=== PATIENT | male | born 1955 | race Caucasian/White ===

== ENCOUNTER 2017-05-05 20:22 | Emergency (ER) | payer OTHER ==
[~2017-05-05] VITALS: Ht 180.3 cm; Wt 94.0 kg
[~2017-05-05 20:22] MED LIST: ASPEC325 PO; EZET10TA63 PO; INSUINJ8 SQ; LISI-461 PO; LPT/40 PO; METO25TA56 PO; MULT-506 PO; NTRGSL/4 UT; NVLGI SQ; TRIA37.5 PO
[2017-05-05 20:25] VITALS: BP 136/65; PULSE 92; TEMP 36.7; O2SAT 97; Ht 180.3 cm; Wt 94.0 kg
[2017-05-05] MEDS ORDERED: ATOR-26 PO (20:51)
[2017-05-05] MEDS ORDERED: NVLGI/PEN SC (20:51)
[2017-05-05] MEDS ORDERED: ASPI325T39 PO (20:51)
[2017-05-05] MEDS ORDERED: NVLNI SC ×2 (20:51)
[2017-05-05] MEDS ORDERED: CEPH500C2 PO (21:41)
[2017-05-05] MEDS ORDERED: CEPHALEXIN 500MG HOME PACK 1 EA BTL PO ONE (21:45)
--- NOTE | 2017-05-07 00:06 | EMERGENCY ROOM VISIT NOTE ---
ED Visit Note First contact with patient: 20:31 Chief Complaint: I cut my left big toe trimming my toenails. History of Present Illness: Mr. Carmona is a 61-year-old white male who ambulates into the ED accompanied by his complaining of a left toe laceration. Patient reports approximately one hour ago he was trimming his toenails with a nail arik and accidentally cut the tip of his toe. He did clean the wound and attempted to stop bleeding with the application of astyptic pen. He does report he is a diabetic and was concerned about possible infection so he came to the emergency department for further evaluation and care. Currently he reports he is not experiencing any pain and he has not noted any return of bleeding from his laceration. He does report he normally has numbness and tingling of his great toe which is still present but not worse. He has not taken any medications for pain prior to arrival at the hospital. Additionally he denies any signs of infection including fevers, chills, sweats, joint pain, decreased appetite, nausea/vomiting. Review of Systems: As noted above in history of present illness. Past Medical History: Diabetes, ischemic heart disease, bladder cancer, hypertension. Current Medications: Medications Dose Route/Sig Max Daily Dose Days Date Category Novolin N (Insulin Human NPH) 100 Units/Ml Susp 18 Units SC QPM 05/05/17 Reported Novolin N (Insulin Human NPH) 100 Units/Ml Susp 42 Units SC QAM 05/05/17 Reported Novolog Flexpen (Insulin Aspart) 100 Units/Ml Inj 14 Units SC BID 05/05/17 Reported Lipitor (Atorvastatin Calcium) 80 Mg Tab 80 Mg PO DAILY 05/05/17 Reported Aspirin Ec (Aspirin) 325 Mg Tab 325 Mg PO DAILY 05/05/17 Reported Lopressor (Metoprolol Tartrate) 25 Mg Tab 25 Mg PO BID 09/19/09 Reported Zestril (Lisinopril) 10 Mg Tab 10 Mg PO BID 09/19/09 Reported Dyazide 37.5MG/25MG (Triamterene/HCTZ) Cap 1 Tab PO DAILY 09/19/09 Reported Nitrostat (Nitroglycerin) 0.4 Mg Tab 0.4 Mg UT PRN 09/19/09 Reported Multivitamin (Multivitamins) Tab 1 Tab PO DAILY 09/19/09 Reported Zetia (Ezetimibe) 10 Mg Tab 10 Mg PO HS 04/11/07 Reported Allergies to Medications: Patient denies. Social History: Patient is currently employed; he feels safe in his home environment; he denies tobacco use.. Tetanus Immunization Status: Patient reports up-to-date. Physical Examination: Vital Signs: Date Time Temp Pulse Resp B/P (MAP) Pulse Ox O2 Delivery O2 Flow Rate FiO2 05/05/17 20:25 36.7 92 18 136/65 97 Room Air GENERAL: 61-year-old male in no acute distress, nontoxic-appearing, afebrile and hemodynamically stable. NEUROLOGICAL: Awake, alert and oriented to person, place and time. Answering questions appropriately and following commands. Normal gait. Good hand eye coordination. No focal motor sensory deficits. SKIN: Warm, dry and pink. Left Great Toe: Patient has a 1-1.5 centimeter superficial laceration over the tip of the left great toe. There is some mild oozing but no significant bleeding. Additionally noted was a large amount of black material around and in the laceration. He reported this was the styptic material. LEFT FOOT: Soft tissue injury as noted above. No gross bony deformity. Mild tenderness over his laceration but no tenderness over the joints or the bony structures. The skin was warm and pink and capillary refill is brisk. Because of his neuropathy had difficulty distinguishing light touch. ED Course: Patient is assessed as noted above. Wound Cleaning Patient's great toe was prepped with Betadine and placed in a sterile field. I did remove all of the black material from his wound and most of the other black material on the foot. Copious irrigation was performed using sterile saline. With direct pressure the bleeding subsided. Bacitracin was placed on his wound and the toe was then bandaged with sterile saline. No complications and the patient tolerated the procedure well. Patient was educated about tonight's findings and instructed on his treatment plan; he verbalizes understanding and agreement with this plan. Clinical Impression: Laceration of the left great toe Disposition: Patient discharged home in stable condition; prior to departure he was reassessed and subjectively reported he was still pain free. Plan: Comfort measures, wound care and signs of infection were discussed with the patient. A magaly was prescribed Keflex 500 mg 4 times a day for 7 days. Patient was encouraged to follow-up with PCP or return to the ED for any signs of infection or any new/concerning symptoms.
== END 2017-05-05 21:50 | disposition home or self-care (01) ==
LOC: C.EDB 20:23 → C.EDD 21:50
DX: S91.112A Laceration without foreign body of left great toe without damage to nail, initial encounter (principal); I10 Essential (primary) hypertension; E11.9 Type 2 diabetes mellitus without complications; Z79.4 Long term (current) use of insulin; Z79.82 Long term (current) use of aspirin; Z85.51 Personal history of malignant neoplasm of bladder; Z79.899 Other long term (current) drug therapy; W26.8XXA Contact with other sharp object(s), not elsewhere classified, initial encounter

== ENCOUNTER → 2017-09-12 | Outpatient (CLI) | payer OTHER ==
[~2017-09-12] MED LIST changes: -ASPEC325 PO; +ASPI325T39 PO; +ATOR-26 PO; -INSUINJ8 SQ; -LPT/40 PO; -NVLGI SQ; +NVLGI/PEN SC; +NVLNI SC
== END | disposition home or self-care (01) ==
LOC: C.PATHSPEC 16:46
PROVIDERS: ATTEND Urology
DX: N40.0 Benign prostatic hyperplasia without lower urinary tract symptoms (principal)

== ENCOUNTER 2021-08-23 11:05 | Inpatient (IN) ==
[2021-08-23] MEDS ORDERED: ACETAMINOPHEN 1,000 MG/100 ML VIAL IV STA (11:57)
[2021-08-23] MEDS ORDERED: PIPERACILL/TAZOBAC CONSULT ACTIVE PRN ×2 (11:57→17:33)
[2021-08-23] MEDS ORDERED: PIPERACILLIN/TAZOBACTAM 4.5 GM/120 ML BAG IV ONE (11:57)
[2021-08-23] MEDS ORDERED: SODIUM CHLORIDE 0.9% 1000ML 1,000 ML IV ONE (11:57)
[2021-08-23] MEDS ORDERED: DAPTOmycin 500 MG in SYRINGE 0 ML IV ONE (11:57)
--- NOTE | 2021-08-23 12:05 | Emergency Department Note ---
Impression & Plan Cellulitis of left foot, Diabetic foot ulcers, Diabetic polyneuropathy ED Provider Note NAME: JEN AGUILLON AGE: 66 SEX: M ARRIVES VIA: Walk-In INFORMANT: Oni ED PROVIDER(S): Shlomo Siegel MD CHIEF COMPLAINT: Cellulitis, foot ulcers. 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 He reports he has been following with podiatry for a right diabetic toe ulcer that persists but has not been infected per his report. He reports feeling feverish today. He denies nausea, vomiting, diarrhea or urinary symptoms. On arrival the patient is fatigued appearing but no acute distress, afebrile heart in the 100s, BP 190s/70s and vital signs otherwise stable. He has erythema and edema of the left mid and forefoot with distal plantar surface ulcerations of the first and second toes with purulence draining from the second toe (culture obtained) and fluctuance over the second toe. Aspiration attempted of first toe but no purulence was drained. EKG without overt acute ischemia. CXR with nonspecific interstitial thickening. WBC 12.8K. H/H 12.4/35.5 without prior values for comparison. Platelets wnl. ESR elevated at 80 and CRP 12.3. Chemistry without acidosis. Lactate 1.2, wnl. Electrolytes unremarkable. LFTs with mild elevations without prior for comparison, nonspecific. Procalcitonin is not significantly elevated. UA without convincing evidence of infection. Covid-19 PCR ws negative. Plain films of left foot without XR evidence of osseous involvement. Patient agrees with plan for further management of his foot cellulitis/ulcers. Zosyn and Daptomycin ordered empiricially on arrival. Case was discussed with Justyn Choi PAC, with Dr. Jamin Alejandra hospitalist who will evaluate the patient for admission. Triage Nursing notes reviewed and agree them. prior medical records reviewed Vital Signs: reviewed and remarkable for hypertension. Differential diagnosis: Cellulitis, abscess, MRSA infection, DVT, necrotizing fasciitis, dermatitis, drug eruption, allergic reaction, as well as other pathologies. ER treatment provided: See below. Diagnostics interpreted by me: ECG: Sinus rhythm, 93 bpm, no ectopy, likely LVH, no overt ST elevation or depression. Cardiac Monitoring: An order for continuous cardiac monitoring was placed and demonstrated Sinus rhythm, 93 bpm, no ectopy. Laboratory studies: see below Imaging studies: See below Consultation(s): Justyn Choi PAC, with Dr. 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 He reports he has been following with podiatry for a right diabetic toe ulcer that persists but has not been infected per his report. He reports feeling feverish today. He denies nausea, vomiting, diarrhea or urinary symptoms. ROS: See above HPI for pertinent positives & negatives. A total of 10 systems reviewed and were otherwise negative. PAST MEDICAL HISTORY: see Below PAST SURGICAL HISTORY: see Below FAMILY HISTORY:See Below SOCIAL HISTORY: see Below HOME MEDICATIONS: see Below ALLERGIES: see Below VITALS: see Below PHYSICAL EXAMINATION: GENERAL: Awake, alert, well-appearing, in no distress HENT: Normocephalic, atraumatic. Oropharynx unremarkable. EYES: Normal conjunctiva. Sclera non-icteric. NECK: Supple. No nuchal rigidity. FROM. No JVD. RESPIRATORY: Clear to auscultation. CARDIAC: Regular rate, normal rhythm. Extremities warm and well perfused. Pulses equal. ABDOMEN: Soft, non-distended. No tenderness to palpation. No rebound or guarding. No masses. RECTAL: Deferred. MUSCULOSKELETAL: Chest examination reveals no tenderness. The back is symmetrical on inspection without obvious abnormality. There is no CVA tenderness to palpation. No joint edema. LOWER EXTREMITIES: Calves are equal size bilaterally and non-tender. Erythema and edema of the left mid and forefoot with distal plantar surface ulcerations of the first and second toes with purulence draining from the second toe and large amount of fluctuance over the first toe. NEURO: Normal sensorium. No sensory or motor deficits noted. SKIN: No rash or jaundice noted. Shlomo Siegel MD Past Med/Surg History Medical History Arrhythmia "SKIPS A BEAT" CAD (coronary artery disease) Cancer BLADDER CANCER CKD (chronic kidney disease) stage 3, GFR 30-59 ml/min Diabetes mellitus type 1 Diabetic polyneuropathy Hyperlipidemia Hypertension Surgical History H/O transurethral destruction of bladder lesion History of cardiac cath 2000 History of cataract extraction with lens replacement RIGHT EYE, 12/24/18, [facility] [place] History of colonoscopy History of coronary artery bypass graft 6 VESSELS (2000; [facility]) FOLLOWS WITH DR. CUADRA. History of cystoscopy Family History Father , 31 Myocardial infarction Social History Smoking Status: Former smoker Cigarettes Per Day: QUIT IN 1976; Smoking End Date: 1976; Second Hand Exposure: No; Hx Alcohol Use: Yes Alcohol type: beer Hx Substance Use: No Preferred Language: Iraqi Communication Ability: Effective Terminal Clerk Required: No Beliefs That Will Affect Care: None Current Living Situation: Spouse Other Information That Helps Us Care for You: No Feels Safe at Home: Yes Safety Concerns: Feels Safe At This Time Assistive Devices: Glasses Allergies Allergies Allergy/AdvReac Type Severity Reaction Status Date / Time No Known Allergies Allergy Verified 08/23/21 12:32 Home Meds Home Medications Medication Instructions Recorded Confirmed aspirin 325 mg tablet 325 mg PO QAM 12/15/18 08/23/21 atorvastatin 80 mg tablet 80 mg PO HS 12/15/18 08/23/21 ezetimibe 10 mg tablet (Zetia) 10 mg PO HS 12/15/18 08/23/21 insulin NPH isoph U-100 human 100 18 unit SUBCUT QPM 12/15/18 08/23/21 unit/mL subcutaneous suspension (Novolin N NPH U-100 Insulin isophane) insulin NPH isoph U-100 human 100 42 unit SUBCUT QAM 12/15/18 08/23/21 unit/mL subcutaneous suspension (Novolin N NPH U-100 Insulin isophane) insulin aspart U-100 100 unit/mL 0 unit SUBCUT BID 12/15/18 08/23/21 subcutaneous cartridge (Novolog PenFill U-100 Insulin aspart) metoprolol tartrate 25 mg tablet 25 mg PO BID 12/15/18 08/23/21 multivitamin 1 tab PO DAILY 12/15/18 08/23/21 furosemide 40 mg tablet (Lasix) See Rx Instructions .ROUTE .COMPLEX 08/23/21 08/23/21 isosorbide mononitrate 30 mg 30 mg PO DAILY 08/23/21 08/23/21 tablet,extended release 24 hr lisinopril 40 mg tablet 40 mg PO DAILY 08/23/21 08/23/21 terazosin 2 mg capsule 2 mg PO HS 08/23/21 08/23/21 Results & Data (ED) Vital Signs Vital Signs - 24 hr 08/23/21 11:16 08/23/21 12:08 08/23/21 13:00 Temperature 36.7 C Temperature Source Temporal Artery Scan Pulse Rate 104 H Pulse Rate from SpO2 Sensor Pulse Rhythm Regular Pulse Strength Normal Respiratory Rate 20 Respiratory Effort / Characteristics Non-Labored Spontaneous Non-Labored Spontaneous Non-Labored Spontaneous Respiratory Depth Normal Respiratory Pattern Regular Blood Pressure 146/73 H Blood Pressure Mean 97 Blood Pressure Position Sitting Pulse Oximetry 100 Oxygen Delivery Method Room Air Sepsis Recent Fever Within 48 Hours No Sepsis New/Unexplained Change in Mental Status No Sepsis Action Taken by Nursing No Action Required 08/23/21 13:07 08/23/21 13:30 08/23/21 13:53 Temperature 37.2 C Temperature Source Oral Pulse Rate 85 82 Pulse Rate from SpO2 Sensor 85 81 Pulse Rhythm Pulse Strength Respiratory Rate 19 20 Respiratory Effort / Characteristics Respiratory Depth Respiratory Pattern Blood Pressure 154/70 H Blood Pressure Mean 98 Blood Pressure Position Pulse Oximetry 94 98 Oxygen Delivery Method Sepsis Recent Fever Within 48 Hours Sepsis New/Unexplained Change in Mental Status Sepsis Action Taken by Nursing Laboratory Data Attestation: I reviewed the patient's lab results. Result diagrams: 08/23/21 11:40 08/23/21 11:40 Lab Results 08/23/21 08/23/21 08/23/21 Range/Units 11:40 11:40 11:40 WBC 12.81 H (4.8-10.8) K/uL RBC 3.68 L (4.7-6.1) M/uL Hgb 12.4 L (14.0-18.0) g/dL Hct 35.5 L (42-52) % MCV 96.5 (80-100) fL MCH 33.7 (25-34) pg MCHC 34.9 (32-36) g/dL RDW Std Deviation 44.6 (36.4-46.3) fL RDW Coeff of Liseth 12.7 (11.5-14.5) % Plt Count 248 (130-400) K/uL MPV 11.0 H (7.4-10.4) fL Immature Gran % (Auto) 0.2 % Neut % (Auto) 82.4 % Lymph % (Auto) 5.5 % Pike % (Auto) 11.2 % Eos % (Auto) 0.6 % Baso % (Auto) 0.1 % Neut # (Auto) 10.57 H (1.4-6.5) K/uL Lymph # (Auto) 0.70 L (1.2-3.4) K/uL Pike # (Auto) 1.43 H (0.11-0.59) K/uL Eos # (Auto) 0.08 (0-0.5) K/uL Baso # (Auto) 0.01 (0-0.2) K/uL Immature Gran # (Auto) 0.02 (0.00-0.02) K/uL ESR (0-20) mm/hr PT 10.7 (9.0-12.0) Seconds INR 1.1 (0.9-1.1) APTT 28.5 (21.0-31.0) Seconds PTT Ratio 1.1 Sodium 133 L (136-145) mmol/L Potassium 3.9 (3.5-5.1) mmol/L Chloride 101 (98-107) mmol/L Carbon Dioxide 27 (21-32) mmol/L Anion Gap 5.0 (3-11) BUN 32 H (7-18) mg/dl Creatinine 1.27 (0.6-1.4) mg/dl Est Cr Clr Drug Dosing 66.9 ml/min Est GFR ( Amer) 67.3 ml/min Est GFR (Non-Af Amer) 58.1 ml/min BUN/Creatinine Ratio 25.1 H (10-20) Glucose 138 H (70-99) mg/dl POC Glucose (70-99) mg/dl Lactate (0.4-2.0) mmol/L Calcium 9.7 (8.5-10.1) mg/dl Magnesium 2.4 (1.8-2.4) mg/dl Total Bilirubin 1.3 H (0.2-1) mg/dl AST 67 H (15-37) U/L ALT 119 H (12-78) U/L Alkaline Phosphatase 196 H (45-117) U/L Total Creatine Kinase (39-308) U/L C-Reactive Protein (0-0.29) mg/dl NT-Pro-B Natriuret Pep (0-900) pg/ml Total Protein 8.5 H (6.4-8.2) gm/dl Albumin 3.0 L (3.4-5.0) gm/dl Globulin 5.5 H (2.5-4.0) gm/dl Albumin/Globulin Ratio 0.5 L (0.9-2) Procalcitonin (0-0.5) ng/ml SARS-CoV-2 (PCR) (Negative) 08/23/21 08/23/21 08/23/21 Range/Units 11:40 11:40 11:40 WBC (4.8-10.8) K/uL RBC (4.7-6.1) M/uL Hgb (14.0-18.0) g/dL Hct (42-52) % MCV (80-100) fL MCH (25-34) pg MCHC (32-36) g/dL RDW Std Deviation (36.4-46.3) fL RDW Coeff of Liseth (11.5-14.5) % Plt Count (130-400) K/uL MPV (7.4-10.4) fL Immature Gran % (Auto) % Neut % (Auto) % Lymph % (Auto) % Pike % (Auto) % Eos % (Auto) % Baso % (Auto) % Neut # (Auto) (1.4-6.5) K/uL Lymph # (Auto) (1.2-3.4) K/uL Pike # (Auto) (0.11-0.59) K/uL Eos # (Auto) (0-0.5) K/uL Baso # (Auto) (0-0.2) K/uL Immature Gran # (Auto) (0.00-0.02) K/uL ESR 80 H (0-20) mm/hr PT (9.0-12.0) Seconds INR (0.9-1.1) APTT (21.0-31.0) Seconds PTT Ratio Sodium (136-145) mmol/L Potassium (3.5-5.1) mmol/L Chloride (98-107) mmol/L Carbon Dioxide (21-32) mmol/L Anion Gap (3-11) BUN (7-18) mg/dl Creatinine (0.6-1.4) mg/dl Est Cr Clr Drug Dosing ml/min Est GFR ( Amer) ml/min Est GFR (Non-Af Amer) ml/min BUN/Creatinine Ratio (10-20) Glucose (70-99) mg/dl POC Glucose (70-99) mg/dl Lactate (0.4-2.0) mmol/L Calcium (8.5-10.1) mg/dl Magnesium (1.8-2.4) mg/dl Total Bilirubin (0.2-1) mg/dl AST (15-37) U/L ALT (12-78) U/L Alkaline Phosphatase (45-117) U/L Total Creatine Kinase 59 (39-308) U/L C-Reactive Protein 12.30 H (0-0.29) mg/dl NT-Pro-B Natriuret Pep (0-900) pg/ml Total Protein (6.4-8.2) gm/dl Albumin (3.4-5.0) gm/dl Globulin (2.5-4.0) gm/dl Albumin/Globulin Ratio (0.9-2) Procalcitonin 0.30 (0-0.5) ng/ml SARS-CoV-2 (PCR) (Negative) 08/23/21 08/23/21 08/23/21 Range/Units 11:40 12:27 12:30 WBC (4.8-10.8) K/uL RBC (4.7-6.1) M/uL Hgb (14.0-18.0) g/dL Hct (42-52) % MCV (80-100) fL MCH (25-34) pg MCHC (32-36) g/dL RDW Std Deviation (36.4-46.3) fL RDW Coeff of Liseth (11.5-14.5) % Plt Count (130-400) K/uL MPV (7.4-10.4) fL Immature Gran % (Auto) % Neut % (Auto) % Lymph % (Auto) % Pike % (Auto) % Eos % (Auto) % Baso % (Auto) % Neut # (Auto) (1.4-6.5) K/uL Lymph # (Auto) (1.2-3.4) K/uL Pike # (Auto) (0.11-0.59) K/uL Eos # (Auto) (0-0.5) K/uL Baso # (Auto) (0-0.2) K/uL Immature Gran # (Auto) (0.00-0.02) K/uL ESR (0-20) mm/hr PT (9.0-12.0) Seconds INR (0.9-1.1) APTT (21.0-31.0) Seconds PTT Ratio Sodium (136-145) mmol/L Potassium (3.5-5.1) mmol/L Chloride (98-107) mmol/L Carbon Dioxide (21-32) mmol/L Anion Gap (3-11) BUN (7-18) mg/dl Creatinine (0.6-1.4) mg/dl Est Cr Clr Drug Dosing ml/min Est GFR ( Amer) ml/min Est GFR (Non-Af Amer) ml/min BUN/Creatinine Ratio (10-20) Glucose (70-99) mg/dl POC Glucose 107 H (70-99) mg/dl Lactate (0.4-2.0) mmol/L Calcium (8.5-10.1) mg/dl Magnesium (1.8-2.4) mg/dl Total Bilirubin (0.2-1) mg/dl AST (15-37) U/L ALT (12-78) U/L Alkaline Phosphatase (45-117) U/L Total Creatine Kinase (39-308) U/L C-Reactive Protein (0-0.29) mg/dl NT-Pro-B Natriuret Pep 1318 H (0-900) pg/ml Total Protein (6.4-8.2) gm/dl Albumin (3.4-5.0) gm/dl Globulin (2.5-4.0) gm/dl Albumin/Globulin Ratio (0.9-2) Procalcitonin (0-0.5) ng/ml SARS-CoV-2 (PCR) NEGATIVE (Negative) 08/23/21 Range/Units 12:39 WBC (4.8-10.8) K/uL RBC (4.7-6.1) M/uL Hgb (14.0-18.0) g/dL Hct (42-52) % MCV (80-100) fL MCH (25-34) pg MCHC (32-36) g/dL RDW Std Deviation (36.4-46.3) fL RDW Coeff of Liseth (11.5-14.5) % Plt Count (130-400) K/uL MPV (7.4-10.4) fL Immature Gran % (Auto) % Neut % (Auto) % Lymph % (Auto) % Pike % (Auto) % Eos % (Auto) % Baso % (Auto) % Neut # (Auto) (1.4-6.5) K/uL Lymph # (Auto) (1.2-3.4) K/uL Pike # (Auto) (0.11-0.59) K/uL Eos # (Auto) (0-0.5) K/uL Baso # (Auto) (0-0.2) K/uL Immature Gran # (Auto) (0.00-0.02) K/uL ESR (0-20) mm/hr PT (9.0-12.0) Seconds INR (0.9-1.1) APTT (21.0-31.0) Seconds PTT Ratio Sodium (136-145) mmol/L Potassium (3.5-5.1) mmol/L Chloride (98-107) mmol/L Carbon Dioxide (21-32) mmol/L Anion Gap (3-11) BUN (7-18) mg/dl Creatinine (0.6-1.4) mg/dl Est Cr Clr Drug Dosing ml/min Est GFR ( Amer) ml/min Est GFR (Non-Af Amer) ml/min BUN/Creatinine Ratio (10-20) Glucose (70-99) mg/dl POC Glucose (70-99) mg/dl Lactate 1.2 (0.4-2.0) mmol/L Calcium (8.5-10.1) mg/dl Magnesium (1.8-2.4) mg/dl Total Bilirubin (0.2-1) mg/dl AST (15-37) U/L ALT (12-78) U/L Alkaline Phosphatase (45-117) U/L Total Creatine Kinase (39-308) U/L C-Reactive Protein (0-0.29) mg/dl NT-Pro-B Natriuret Pep (0-900) pg/ml Total Protein (6.4-8.2) gm/dl Albumin (3.4-5.0) gm/dl Globulin (2.5-4.0) gm/dl Albumin/Globulin Ratio (0.9-2) Procalcitonin (0-0.5) ng/ml SARS-CoV-2 (PCR) (Negative) Administered Medications Ezetimibe (Ezetimibe 10 Mg Tablet) 10 mg PO HS RUCHI Stop: 09/22/21 20:59 Last Admin: 08/23/21 20:30 Dose: 10 mg Documented by: [id number] Heparin Sodium (Porcine) (Heparin Sod 5,000 Unit/0.5 Ml Vial) 5,000 units SQ Q8 RUCHI Stop: 09/22/21 21:59 Last Admin: 08/23/21 20:30 Dose: 5,000 units Documented by: [id number] Piperacillin Sod/Tazobactam (Sod 3.375 gm/ Dextrose) 115 mls @ 28.75 mls/hr IV Q8H RUCHI Stop: 08/30/21 17:59 Last Admin: 08/24/21 00:49 Dose: 28.8 mls/hr Documented by: [id number] Infusion: 08/24/21 00:47 Dose: 0 mls/hr Documented by: [id number] Infusion: 08/23/21 22:50 Dose: 28.8 mls/hr Documented by: [id number] Infusion: 08/23/21 21:08 Dose: 0 mls/hr Documented by: [id number] Admin: 08/23/21 19:03 Dose: 28.8 mls/hr Documented by: [id number] Insulin Aspart (Insulin Aspart 100 Units/Ml 3 Ml Pen) 0 units SC ACHS RUCHI Stop: 09/22/21 17:32 Last Admin: 08/23/21 21:10 Dose: 1 units Documented by: [id number] Cosigned by: [id number] Admin: 08/23/21 19:05 Dose: Not Given Documented by: [id number] Cosigned by: [id number] Terazosin HCl (Terazosin Hcl 1 Mg Cap) 2 mg PO HS RUCHI Stop: 09/22/21 20:59 Last Admin: 08/23/21 20:30 Dose: 2 mg Documented by: [id number] Discontinued Medications Furosemide (Furosemide 40 Mg/4 Ml Vial) 20 mg IV ONE ONE Stop: 08/23/21 15:01 Last Admin: 08/23/21 15:29 Dose: 20 mg Documented by: [id number] Piperacillin Sod/Tazobactam Sod (Zosyn) 4.5 gm in 120 mls @ 240 mls/hr IV NOW O NE Stop: 08/23/21 12:26 Last Infusion: 08/23/21 13:58 Dose: 0 mls/hr Documented by: [id number] Admin: 08/23/21 13:08 Dose: 240 mls/hr Documented by: [id number] Daptomycin 500 mg/ Syringe 10 mls @ 5 mls/min IV NOW ONE; Protocol Stop: 08/23/21 11:58 Last Admin: 08/23/21 14:49 Dose: 5 mls/min Documented by: [id number] Sodium Chloride (Nss 1000ml) 1,000 mls @ 999 mls/hr IV .Q1H1M ONE Stop: 08/23/21 12:57 Last Infusion: 08/23/21 13:59 Dose: 0 mls/hr Documented by: [id number] Admin: 08/23/21 12:18 Dose: 999 mls/hr Documented by: [id number] Acetaminophen (Ofirmev) 1,000 mg in 100 mls @ 400 mls/hr IV NOW STA Stop: 08/23/21 12:11 Last Infusion: 08/23/21 13:09 Dose: 0 mls/hr Documented by: [id number] Admin: 08/23/21 12:19 Dose: 400 mls/hr Documented by: [id number] Insulin Human NPH (Insulin Human Nph) 20 units SC NOW ONE Stop: 08/23/21 18:31 Last Admin: 08/23/21 19:04 Dose: 20 units Documented by: [id number] Cosigned by: [id number] Metoprolol Tartrate (Metoprolol Tartrate 25 Mg Tab) 25 mg PO NOW STA Stop: 08/23/21 14:57 Last Admin: 08/23/21 15:29 Dose: 25 mg Documented by: [id number] Metoprolol Tartrate (Metoprolol Tartrate 50 Mg Tab) 50 mg PO ONE ONE Stop: 08/24/21 00:16 Last Admin: 08/24/21 00:49 Dose: 50 mg Documented by: [id number] Imaging Data Radiologist's Impression: Chest X-Ray 08/23/21 11:57 XR chest 1V portable CLINICAL HISTORY: SEPSIS COMPARISON STUDY: Chest radiograph September 19, 2009. FINDINGS: Median sternotomy wires are noted as well as mediastinal surgical clips. There is moderate enlargement of the cardiac silhouette, increased since prior examination. No pneumothorax or pleural effusion is noted. Interstitial thickening has developed. There is no lobar consolidation. IMPRESSION: Cardiomegaly. Interstitial thickening which may reflect mild pulmonary edema or an infectious process. Radiographic follow-up is recommended. ACT 112: Negative or not required by law. Electronically signed by: Khang Paige M.D. 08/23/2021 12:23 PM Foot X-Ray 08/23/21 11:57 LEFT FOOT 2 VIEWS CLINICAL HISTORY: Cellulitis. Diabetic foot ulcer. FINDINGS: AP and lateral views of the left foot are obtained. No prior studies are available for comparison at the time of dictation. The skeletal structures are osteopenic. No fracture is identified. Degenerative spurring is seen along the dorsal aspect of the tarsal bones. Mild arthritic change is seen throughout the foot. No bony erosion or periostitis is identified. A soft tissue ulceration with soft tissue gas is suggested along the plantar surface of the first toe. Diffuse soft tissue edema is present throughout the foot. There is advanced atherosclerotic calcification of the regional arteries. IMPRESSION: 1. No acute bony abnormality is identified. Specifically, there is no radiographic evidence of osteomyelitis on the provided images. 2. Diffuse soft tissue edema is typical for cellulitis. 3. Suspect a soft tissue ulceration with soft tissue gas along the plantar surface of the first toe. Electronically signed by: Camacho Merida M.D. 08/23/2021 12:35 PM Discharge Plan Visit Data Chief Complaint: Infection Stated Complaint: L LEG INFECTION/REFERRED BY DR HERNÁNDEZ ED Provider: Shlomo Siegel Discharge Problem: Cellulitis of left foot, Diabetic foot ulcers, Diabetic polyneuropathy Patient Disposition: Admitted As Inpatient Discharge Instructions Interventions: ED Discharge Assessment Last Done: 08/23/21 15:28 Discharge Problem: Diabetic foot ulcers Qualifiers: Diabetic foot ulcer location: toe
[2021-08-23 12:15] LABS: Basophils # (auto) 0.01 K/uL (0-0.2); Basophils % (auto) 0.1 %; Eosinophils # (auto) 0.08 K/uL (0-0.5); Eosinophils % (auto) 0.6 %; Hematocrit (blood only) 35.5 % (42-52); Hemoglobin 12.4 g/dL (14.0-18.0); Immature Granulocytes # (auto) 0.02 K/uL (0.00-0.02); Immature Granulocytes % (auto) 0.2 %; Lymphocytes % (auto) 5.5 %; Mean Corpuscular Hemoglobin 33.7 pg (25-34); Mean Corpuscular Hgb Conc 34.9 g/dL (32-36); Mean Corpuscular Volume 96.5 fL (80-100); Monocytes # (auto) 1.43 K/uL (0.11-0.59); Monocytes % (auto) 11.2 %; Neutrophils # (auto) 10.57 K/uL (1.4-6.5); Neutrophils % (auto) 82.4 %; Platelet Count 248 K/uL (130-400); RDW Coefficient of Variation 12.7 % (11.5-14.5); RDW Standard Deviation 44.6 fL (36.4-46.3); Red Blood Count 3.68 M/uL (4.7-6.1); White Blood Count 12.81 K/uL (4.8-10.8)
[2021-08-23 12:25] LABS: BUN Creatinine Ratio 25.1 (10-20); Calcium 9.7 mg/dl (8.5-10.1); Creatinine Clr Calc Pharmacy 66.9 ml/min; Est GFR (African American) 67.3 ml/min; Est GFR (Non-African American) 58.1 ml/min; Magnesium 2.4 mg/dl (1.8-2.4); Potassium 3.9 mmol/L (3.5-5.1)
--- NOTE | 2021-08-23 12:25 | XRay Report ---
XR chest 1V portable CLINICAL HISTORY: SEPSIS COMPARISON STUDY: Chest radiograph September 19, 2009. FINDINGS: Median sternotomy wires are noted as well as mediastinal surgical clips. There is moderate enlargement of the cardiac silhouette, increased since prior examination. No pneumothorax or pleural effusion is noted. Interstitial thickening has developed. There is no lobar consolidation. IMPRESSION: Cardiomegaly. Interstitial thickening which may reflect mild pulmonary edema or an infec tious process. Radiographic follow-up is recommended. ACT 112: Negative or not required by law. Electronically signed by: Khang Paige M.D. 08/23/2021 12:23 PM
[2021-08-23 12:28] LABS: Albumin Globulin Ratio 0.5 (0.9-2); Bilirubin,Total 1.3 mg/dl (0.2-1); Globulin 5.5 gm/dl (2.5-4.0); Total Protein 8.5 gm/dl (6.4-8.2)
--- NOTE | 2021-08-23 12:37 | XRay Report ---
LEFT FOOT 2 VIEWS CLINICAL HISTORY: Cellulitis. Diabetic foot ulcer. FINDINGS: AP and lateral views of the left foot are obtained. No prior studies are available for roshan conn at the time of dictation. The skeletal structures are osteopenic. No fracture is identified. D egenerative spurring is seen along the dorsal aspect of the tarsal bones. Mild arthritic change is se en throughout the foot. No bony erosion or periostitis is identified. A soft tissue ulceration with s oft tissue gas is suggested along the plantar surface of the first toe. Diffuse soft tissue edema is present throughout the foot. There is advanced atherosclerotic calcification of the regional arteries . IMPRESSION: 1. No acute bony abnormality is identified. Specifically, there is no radiographic evidence of osteom yelitis on the provided images. 2. Diffuse soft tissue edema is typical for cellulitis. 3. Suspect a soft tissue ulceration with soft tissue gas along the plantar surface of the first toe. Electronically signed by: Camacho Merida M.D. 08/23/2021 12:35 PM
[2021-08-23 12:38] LABS: INR 1.1 (0.9-1.1); Partial Thromboplastin Ratio 1.1; Partial Thromboplastin Time 28.5 Seconds (21.0-31.0); Prothrombin Time 10.7 Seconds (9.0-12.0)
--- NOTE | 2021-08-23 14:21 | Electrocardiogram Report ---
Test Reason : Blood Pressure : / mmHG Vent. Rate : 093 BPM Atrial Rate : 093 BPM P-R Int : 218 ms QRS Dur : 100 ms QT Int : 360 ms P-R-T Axes : 049 030 109 degrees QTc Int : 447 ms Sinus rhythm with 1st degree A-V block Poor R wave progression, consider anterior ME vs. lead placement vs. LVH Abnormal ECG When compared with ECG of 19-SEP-2009 11:46, [place] interval has increased Vent. rate has increased BY 34 BPM QT has lengthened Confirmed by Jose Diaz ([id number] on 08/23/2021 2:20:54 PM Referred By: Confirmed By:Aguilar Diaz
[2021-08-23 14:50] LABS: C Reactive Protein 12.3 mg/dl (0-0.29)
[2021-08-23] MEDS ORDERED: METOPROLOL TARTRATE 25 MG TAB PO STA (14:56)
[2021-08-23] MEDS ORDERED: FUROSEMIDE 40 MG/4 ML VIAL IV ONE (15:00)
--- NOTE | 2021-08-23 15:01 | History & Physical Report ---
Date of Service August 23, 2021 Assessment & Plan (1) Cellulitis of left foot: (2) Diabetic foot ulcers: (3) Diabetes mellitus type 1: (4) Diabetic polyneuropathy: (5) CKD (chronic kidney disease) stage 3, GFR 30-59 ml/min: (6) CAD (coronary artery disease): (7) Hypertension: (8) Hyperlipidemia: Plan: This is a 66-year-old male who has significant past medical history of type 1 diabetes mellitus, diabetic neuropathy, diabetic nephropathy with CKD stage III anemia of chronic disease, chronic ischemic heart disease, history of CABG, HTN, HLD, gout, bladder cancer who presents to ED at the referral of podiatry due to concern for left lower extremity cellulitis. Cellulitis of Left Midfoot (POA) Diabetic ulcerations to L great toe, toe 2,3; R great toe ( POA) Infected/necrotic ulcerations of L toes 1-3 ( POA ) admit to [facility] obtain MRI of L foot obtain venous Doppler LLE and arterial Doppler due to diminished pedal pulse in L foot consult orthopedics IV daptomycin and zosyn ordered blood culture pending wound care consult obtain wound culture elevate lower ext when able LLE non weight bearing until seen by ortho neuropathy precautions ESR 80; CRP 12.3 check ck IDDM Type 1 NPH/novolog per protocol consult glycemic pharmacy a1c in a.m., pt believes his last a1c was < 9 CKD 3, diabetic nephropathy monitor renal fxn avoid nephrotoxic agents CAD hx of CABG Diastolic dysfunction grade 2 continue asa, lisinopril, imdur, metoprolol hold statin while on dapto Hold home regimen of lasix (60mg a.m. and 40mg pm) given increased swelling lower ext/CXR evidence of congestion, give lasix 20mg IV x 1 now continue home regimen of 60mg in a.m. and 40mg in p.m. add oral Kdur 20meq daily daily weights/strict I&O obtain probnp; cardiac cath 08/09 w/o evidence of occlusion, patent grafts Elevated LFT denies abd complaints, significant ETOH/tylenol use repeat in a.m., obtain hepatitis panel, RUQ US HTN bp stable continue metoprolol, imdur, lisinopril Hypoalbuminemia consult application development liaison to also aide in wound healing DVT ppx: SQ Heparin Dispo: [facility] tele PCP: Teri FULL CODE Pt was seen and examined in collaboration with Dr. Neville, please see addendum The chart was completed utilizing [employer] Speech voice recognition software. Grammatical errors, random word insertions, pronoun errors, and incomplete sentences are an occasional consequence of this system due to software limitations, ambient noise, and hardware issues. Any formal questions or concerns about the content, text, or information contained within the body of this dictation should be directly addressed to the provider for clarification. History of Present Illness Chief Complaint: Referred by podiatry due to LLE cellulitis Primary Care Provider: Killian Williamson MD This is a 66-year-old male who has significant past medical history of type 1 diabetes mellitus, diabetic neuropathy, diabetic nephropathy with CKD stage III anemia of chronic disease, chronic ischemic heart disease, history of CABG, HTN, HLD, gout, bladder cancer who presents to ED at the referral of podiatry due to concern for left lower extremity cellulitis. Patient was out hunting on Saturday and Saturday. When he returned home from camp on Saturday he noticed redness to the top of his left foot. He does have diabetic neuropathy and therefore did not feel any pain. He also has inability to see under his foot. He had an urgent appointment with podiatry today who noted patient to have ulcerations to left great toe, 2 and 3 with dorsal midfoot erythema and warmth. On Saturday he felt chilled, but denies and documented fever. He denies sweats, lightheaded, dizziness, chest pain, sob at rest, cough, hemopytsis, n/v/d, abd pain, change in bowel or urinary habits. He has been dealing with SOB which is new for him. He was seen and evaluated by cardiology and underwent nuclear stress test. He was then referred to [place] for cardiac cath given hx of bypass 20 years ago. He Cardiac cath was unremarkable and revealed patent grafts. He does recall have a similar foot infection in past, but w/o ulcerations. He has been diabetic since age 17. His appetite has been good. In ED pt remained hemodynamically stable. Lab work notable for WBC 12.81, H&H 12.4 and 35.5, platelet 248, ESR 80, sodium 133, BUN 32, creatinine 1.27 total bilirubin 1.3, AST 67, ALT 119, alk phos 196, CRP 12.30. Chest x-ray revealed cardiomegaly with interstitial thickening. L Foot XR No acute bony abnormality is identified. Specifically, there is no radiographic evidence of osteomyelitis on the provided images. 2. Diffuse soft tissue edema is typical for cellulitis. 3. Suspect a soft tissue ulceration with soft tissue gas along the plantar surf jass of the first toe. He was started on IV daptomycin and zosyn in ED. Allergies Allergy/AdvReac Type Severity Reaction Status Date / Time No Known Allergies Allergy Verified 08/23/21 12:32 Home Medications Medication Instructions Recorded Confirmed Type aspirin 325 mg tablet 325 mg PO QAM 12/15/18 08/23/21 History atorvastatin 80 mg tablet 80 mg PO HS 12/15/18 08/23/21 History ezetimibe 10 mg tablet (Zetia) 10 mg PO HS 12/15/18 08/23/21 History insulin NPH isoph U-100 human 100 18 unit SUBCUT QPM 12/15/18 08/23/21 History unit/mL subcutaneous suspension (Novolin N NPH U-100 Insulin isophane) insulin NPH isoph U-100 human 100 42 unit SUBCUT QAM 12/15/18 08/23/21 History unit/mL subcutaneous suspension (Novolin N NPH U-100 Insulin isophane) insulin aspart U-100 100 unit/mL 0 unit SUBCUT BID 12/15/18 08/23/21 History subcutaneous cartridge (Novolog PenFill U-100 Insulin aspart) metoprolol tartrate 25 mg tablet 25 mg PO BID 12/15/18 08/23/21 History multivitamin 1 tab PO DAILY 12/15/18 08/23/21 History furosemide 40 mg tablet (Lasix) See Rx Instructions .ROUTE .COMPLEX 08/23/21 08/23/21 History isosorbide mononitrate 30 mg 30 mg PO DAILY 08/23/21 08/23/21 History tablet,extended release 24 hr lisinopril 40 mg tablet 40 mg PO DAILY 08/23/21 08/23/21 History terazosin 2 mg capsule 2 mg PO HS 08/23/21 08/23/21 History Past Med/Surg History Medical History (Updated 08/23/21 @ 15:19 by Mia Wilson PA-C) Arrhythmia "SKIPS A BEAT" CAD (coronary artery disease) Cancer BLADDER CANCER CKD (chronic kidney disease) stage 3, GFR 30-59 ml/min Diabetes mellitus type 1 Diabetic polyneuropathy Hyperlipidemia Hypertension Surgical History H/O transurethral destruction of bladder lesion History of cardiac cath 2000 History of cataract extraction with lens replacement RIGHT EYE, 12/24/18, [facility] [place] History of colonoscopy History of coronary artery bypass graft 6 VESSELS (2000; [facility]) FOLLOWS WITH DR. CUADRA. History of cystoscopy Family History (Updated 08/23/21 @ 15:14 by Mia Wilson PA-C) Father , 31 Myocardial infarction Social History Smoking Status: Former smoker Cigarettes Per Day: QUIT IN 1976; Smoking End Date: 1976; Second Hand Exposure: No; Hx Alcohol Use: Yes Alcohol type: beer Hx Substance Use: No Preferred Language: Amharic Communication Ability: Effective Graphic Arts Instructor Required: No Beliefs That Will Affect Care: None Current Living Situation: Spouse Other Information That Helps Us Care for You: No Feels Safe at Home: Yes Safety Concerns: Feels Safe At This Time Assistive Devices: Glasses Review of Systems Review of Systems: All systems reviewed & are unremarkable except as noted in HPI & below Physical Exam Physical Exam: Constitutional: WD/WN, chronically ill appearing male, vitals as above, NAD, sitting up in bed, pleasant, conversing easily Head: Normocephalic, Atraumatic Eyes: PERRL, conjunctivae normal, anicteric sclerae ENMT: external ear and nose normal, oropharynx normal Neck: trachea midline, no thyromegaly normal visual inspection Respiratory: normal respiratory effort, lungs clear to auscultation, with bibasilar crackles, no wheeze/rhonchi. Normal insp/exp effort, no accessory muscle use Cardiovascular: RRR, 1/6 FEMI LUSB, LLE pitting edema pretibial and pedal, no erythema, negative homans, trace RLE pre tibial Vessels: no JVD or carotid bruit Chest: normal inspection of chest Abdomen: normal bowel sounds, soft, nontender, no hepatosplenomegaly Musculoskeletal: no cyanosis or clubbing, extremities motor strength 5/5 Skin: no rashes, warm and dry normal turgor + L Midfoot erythema and warmth, L volar toe wound 1-3 with area of necrotic tissue, no pain to palpation, R Great toe volar wound which appears not infected, Pedal Pulse +2RLE, Pedal pulse diminished LLE Neurologic: PERRL, EOMI, accommodation nl, no face palsy, no dysarthria CN's II-XI intact bilaterally and moves all extremities Psychiatric: A+Ox3, euthymic affect Lymphatic: no cervical or axillary lymphadenopathy : deferred Results & Data Results & Data ([facility]) Vital Signs (Past 12 Hours) Vital Signs Temp Pulse Resp BP Pulse Ox 08/23/21 13:53 37.2 C 08/23/21 13:30 82 20 154/70 H 98 08/23/21 13:07 85 19 94 08/23/21 11:16 36.7 C 104 H 20 146/73 H 100 Diagnostic Findings Chest X-Ray 08/23/21 11:57 XR chest 1V portable CLINICAL HISTORY: SEPSIS COMPARISON STUDY: Chest radiograph September 19, 2009. FINDINGS: Median sternotomy wires are noted as well as mediastinal surgical clips. There is moderate enlargement of the cardiac silhouette, increased since prior examination. No pneumothorax or pleural effusion is noted. Interstitial thickening has developed. There is no lobar consolidation. IMPRESSION: Cardiomegaly. Interstitial thickening which may reflect mild pulmonary edema or an infectious process. Radiographic follow-up is recommended. ACT 112: Negative or not required by law. Electronically signed by: Khang Paige M.D. 08/23/2021 12:23 PM Foot X-Ray 08/23/21 11:57 LEFT FOOT 2 VIEWS CLINICAL HISTORY: Cellulitis. Diabetic foot ulcer. FINDINGS: AP and lateral views of the left foot are obtained. No prior studies are available for comparison at the time of dictation. The skeletal structures are osteopenic. No fracture is identified. Degenerative spurring is seen along the dorsal aspect of the tarsal bones. Mild arthritic change is seen throughout the foot. No bony erosion or periostitis is identified. A soft tissue ulceration with soft tissue gas is suggested along the plantar surface of the first toe. Diffuse soft tissue edema is present throughout the foot. There is advanced atherosclerotic calcification of the regional arteries. IMPRESSION: 1. No acute bony abnormality is identified. Specifically, there is no radiographic evidence of osteomyelitis on the provided images. 2. Diffuse soft tissue edema is typical for cellulitis. 3. Suspect a soft tissue ulceration with soft tissue gas along the plantar surface of the first toe. Electronically signed by: Camacho Merida M.D. 08/23/2021 12:35 PM Medications Administered Medication List Discontinued Medications Piperacillin Sod/Tazobactam Sod (Zosyn) 4.5 gm in 120 mls @ 240 mls/hr IV NOW ONE Stop: 08/23/21 12:26 Last Infusion: 08/23/21 13:58 Dose: 0 mls/hr Documented by: [id number] Admin: 08/23/21 13:08 Dose: 240 mls/hr Documented by: [id number] Daptomycin 500 mg/ Syringe 10 mls @ 5 mls/min IV NOW ONE; Protocol Stop: 08/23/21 11:58 Last Admin: 08/23/21 14:49 Dose: 5 mls/min Documented by: [id number] Sodium Chloride (Nss 1000ml) 1,000 mls @ 999 mls/hr IV .Q1H1M ONE Stop: 08/23/21 12:57 Last Infusion: 08/23/21 13:59 Dose: 0 mls/hr Documented by: [id number] Admin: 08/23/21 12:18 Dose: 999 mls/hr Documented by: [id number] Acetaminophen (Ofirmev) 1,000 mg in 100 mls @ 400 mls/hr IV NOW STA Stop: 08/23/21 12:11 Last Infusion: 08/23/21 13:09 Dose: 0 mls/hr Documented by: [id number] Admin: 08/23/21 12:19 Dose: 400 mls/hr Documented by: [id number] ECG Rate (beats per minute): 93 Rhythm: normal sinus Findings: + 1st degree AV block COVID-19 Results Results COVID-19 Adm Lab Results: RBC 3.68 M/uL (4.7-6.1) L 08/23/21 WBC 12.81 K/uL (4.8-10.8) H 08/23/21 Hgb 12.4 g/dL (14.0-18.0) L 08/23/21 Hct 35.5 % (42-52) L 08/23/21 Plt Count 248 K/uL (130-400) 08/23/21 Neutrophils (%) (Auto) 82.4 % 08/23/21 Lymphocytes (%) (Auto) 5.5 % 08/23/21 Monocytes # (Auto) 1.43 K/uL (0.11-0.59) H 08/23/21 Eosinophils # (Auto) 0.08 K/uL (0-0.5) 08/23/21 Immature Granulocyte % (Auto) 0.2 % 08/23/21 Neutrophils # (Auto) 10.57 K/uL (1.4-6.5) H 08/23/21 Lymphocytes # (Auto) 0.70 K/uL (1.2-3.4) L 08/23/21 Monocytes # (Auto) 1.43 K/uL (0.11-0.59) H 08/23/21 Eosinophils # (Auto) 0.08 K/uL (0-0.5) 08/23/21 Basophils # (Auto) 0.01 K/uL (0-0.2) 08/23/21 Immature Granulocyte # (Auto) 0.02 K/uL (0.00-0.02) 08/23/21 Na 133 mmol/L (136-145) L 08/23/21 K 3.9 mmol/L (3.5-5.1) 08/23/21 Cl 101 mmol/L (98-107) 08/23/21 CO2 27 mmol/L (21-32) 08/23/21 Anion Gap 5.0 (3-11) 08/23/21 BUN 32 mg/dl (7-18) H 08/23/21 Creatinine 1.27 mg/dl (0.6-1.4) 08/23/21 BUN/Creatinine Ratio 25.1 (10-20) H 08/23/21 Glucose Level 138 mg/dl (70-99) H 08/23/21 Ca 9.7 mg/dl (8.5-10.1) 08/23/21 Total Bilirubin 1.3 mg/dl (0.2-1) H 08/23/21 AST/SGOT 67 U/L (15-37) H 08/23/21 ALT/SGPT 119 U/L (12-78) H 08/23/21 Alkaline Phosphatase 196 U/L (45-117) H 08/23/21 Total Protein 8.5 gm/dl (6.4-8.2) H 08/23/21 Albumin 3.0 gm/dl (3.4-5.0) L 08/23/21 Globulin 5.5 gm/dl (2.5-4.0) H 08/23/21 Albumin/Globulin Ratio 0.5 (0.9-2) L 08/23/21 Total CK 59 U/L (39-308) 08/23/21 TN-Wvh-N-Type Natriuretic Pep 1318 pg/ml (0-900) H 08/23/21 CRP 12.30 mg/dl (0-0.29) H 08/23/21 Procalcitonin 0.30 ng/ml (0-0.5) 08/23/21 PTT 28.5 Seconds (21.0-31.0) 08/23/21 INR 1.1 (0.9-1.1) 08/23/21 COVID-19 PCR NEGATIVE (Negative) 08/23/21 Chest X-Ray 08/23/21 Code Status & VTE Plan Code Status FULL CODE VTE Prophylaxis Plan VTE Prophylaxis will be ordered: Yes Supervising Physician Co-Signing Physician Notes 66-year-old male w/ PMH of type 1 diabetes mellitus, diabetic neuropathy, diabetic nephropathy with CKD stage III, anemia of chronic disease, chronic ischemic heart disease, s/p CABG, HTN, HLD, gout, bladder cancer presented to the ED 08/23 at the referral of podiatry due to concern for left lower extremity cellulitis. Left foot cellulitis Diabetic foot ulcer Diabetic polyneuropathy/DM type I On insulin at home, follows podiatry on regular basis Multiple diabetic ulcer with likely purulence under great toe IV antibiotic, Ortho, MRI to rule out osteomyelitis. Elevated LFT: Trend, Hepatitis panel, US abdomen, consider GI consult Upon Exam GENERAL: Alert and oriented x3. NAD, on RA. HEENT: No pallor, no icterus. Pupils equal, round and reactive to light. Oral mucosa moist. NECK: No JVD, no neck masses. HEART: S1 and S2 heard. Regular rate and rhythm. No murmur, no gallop. RESPIRATORY SYSTEM: Normal AP diameter. No accessory muscle use. No wheezing, no crackles. ABDOMEN: Soft, bowel sounds present, nontender, no distention. CENTRAL NERVOUS SYSTEM: Alert and oriented x3. No facial droop. Speech is clear. Obeys simple commands. Moves extremities. EXTREMITIES: RLE 1+ edema, LLE 2+ edema with erythema/tenderness of left foot with multiple ulcers under left toes/likely fluctuance under great toe. I have seen and examined the patient and have discussed the case with the provider above. I agree with the assessment and plan as stated.
--- NOTE | 2021-08-23 17:23 | Ultrasound Report ---
US venous doppler LE LT CLINICAL HISTORY: Left lower extremity swelling COMPARISON: None available at the time of this dictation. TECHNIQUE: Left lower extremity real-time compression venous ultrasound with Color Doppler imaging. Utilizing real-time ultrasonic imaging multiple real time high-resolution ultrasonic images with comp ression and noncompression maneuvers of the deep venous system in addition to color doppler imaging w ere performed from the common femoral vein through the proximal calf veins. FINDINGS: Currently there is normal compressibility of the deep venous system from the common femoral vein thro ugh the proximal calf veins. No current evidence of acute thrombosis is identified. Impression: No evidence of deep venous thrombus. ACT 112: Negative or not required by law. Electronically signed by: Tenzin Carter M.D. 08/23/2021 5:21 PM
--- NOTE | 2021-08-23 17:25 | Ultrasound Report ---
US abdomen limited CLINICAL HISTORY: RUQ, elevated lfts. COMPARISON: None. TECHNIQUE: Multiple grayscale and color images of the right upper quadrant of the abdomen. FINDINGS: The study is limited by overlying bowel gas. Pancreas: The pancreas cannot be visualized due to the overlying bowel gas. Liver: The liver is homogeneous in increased echogenicity There is no evidence for a focal mass. Ther e is no intrahepatic biliary duct dilatation. There is mild hepatomegaly with the liver measuring 18. 3 cm in the axillary margin. Gallbladder: The gallbladder is well distended with no evidence of cholelithiasis, wall thickening o r pericholecystic edema. There was reportedly a negative sonographic Wilks's sign. Common Bile Duct: (CBD): It is normal in size measuring 5 mm Inferior Vena Cava (IVC): The imaged IVC is patent. Right kidney: There is no evidence for hydronephrosis, calculus or gross renal mass. The kidney is n ormal in size. IMPRESSION: 1. Nonvisualization of pancreas due to overlying bowel gas. 2. Mild hepatomegaly with evidence for fatty infiltration of the liver. ACT 112: Negative or not required by law. Electronically signed by: Tenzin Carter M.D. 08/23/2021 5:24 PM
--- NOTE | 2021-08-23 17:32 | Ultrasound Report ---
US arterial duplex LE CLINICAL HISTORY: dimished pulses. . Swelling of the left lower extremity with left toe pain COMPARISON: None. TECHNIQUE: Duplex sonography of lower extremity arterial system on the left was performed. Velocity measurements provided are in centimeters per second FINDINGS: Tenorio scale, Doppler spectral analysis, and color imaging performed. Left common femoral artery: Triphasic flow velocity. 133 Left profunda femoris artery: Triphasic flow velocity. 94 Left superficial femoral artery: Triphasic flow velocity. 211 distally Left popliteal artery: Triphasic flow velocity. 166 Left posterior tibial artery: Triphasic. flow velocity. 140 Left anterior tibial artery: Biphasic flow velocity. 232 Left dorsalis pedis artery: Monophasic flow velocity. 196 Left peroneal artery: Triphasic flow velocity. 93 Left flow velocities: Segmental elevation of flow velocities is demonstrated within the distal super ficial femoral artery and within the anterior tibial artery characteristic of focal stenosis. IMPRESSION: There is minimal to moderate atherosclerotic plaque seen throughout the left lower extrem ity. Significantly elevated flow velocities are seen within the distal superficial femoral artery and the mid anterior tibial artery characteristic of focal stenosis. Monophasic waveforms are also seen within the dorsalis pedis artery. ACT 112: Negative or not required by law. Electronically signed by: Tenzin Carter M.D. 08/23/2021 5:31 PM
[2021-08-23] MEDS ORDERED: FUROSEMIDE 40 MG TAB PO SCH (17:33)
[2021-08-23] MEDS ORDERED: ONDANSETRON INJ 2 MG/ML 2 ML VIAL IV PRN (17:33)
[2021-08-23] MEDS ORDERED: GLUCAGON FOR INJ 1 MG VIAL SQ PRN (17:33)
[2021-08-23] MEDS ORDERED: PHARMACY GLYCEMIC MGMT CONSULT PRN (17:33)
[2021-08-23] MEDS ORDERED: POLYETHYLENE (MIRALAX) 17 GM PACK PO PRN (17:33)
[2021-08-23] MEDS ORDERED: CARBOHYDRATES FOR HYPOGLYCEMIA PO PRN (17:33)
[2021-08-23] MEDS ORDERED: ALUMINUM/MAGNESIUM SUSP 30 ML UDC PO PRN (17:33)
[2021-08-23] MEDS ORDERED: DEXTROSE 50% 50 ML SYRINGE IV PRN (17:33)
[2021-08-23] MEDS ORDERED: MAGNESIUM HYDROXIDE SUSP 30 ML UDC PO PRN (17:33)
[2021-08-23] MEDS ORDERED: GLUCOSE 10 TABS/TUBE PO PRN (17:33)
[2021-08-23] MEDS ORDERED: GLUCOSE 40% GEL 15 GM TUBE PO PRN (17:33)
[2021-08-23] MEDS ORDERED: INSULIN HUMAN NPH SC ONE (18:30)
[2021-08-23] MEDS: PIPERACILLIN/TAZOBACTAM 3.375 GM in DEXTROSE 5% 100 ML IV SCH (19:03)
[2021-08-23] MEDS: INSULIN ASPART 100 UNITS/ML 3 ML PEN SC SCH ×2 (19:05→21:10)
[2021-08-23] MEDS: HEPARIN SOD 5,000 UNIT/0.5 ML VIAL SQ SCH (20:30)
[2021-08-23] MEDS: EZETIMIBE 10 MG TABLET PO SCH (20:30)
[2021-08-23] MEDS: TERAZOSIN HCL 1 MG CAP PO SCH (20:30)
[2021-08-23] MEDS ORDERED: METOPROLOL TARTRATE 25 MG TAB PO SCH (21:00)
[2021-08-23 21:35] LABS: Appearance Urine Clear (Clear); Bacteria Urine Automated Negative (Negative); Bilirubin Urine Negative (Negative); Blood Urine Negative (Negative); Cast Urine Automated 0 /lpf (0-5); Color Urine Yellow; Epithelial Cell Urine Auto 0-5 /lpf (0-5); Glucose Urine UA Negative (Negative); Ketones Urine Negative (Negative); Leukocyte Esterase Urine Negative (Negative); Nitrite Urine Negative (Negative); Protein Urine Trace (Negative); RBC Urine Automated 0-4 /hpf (0-4); Specific Gravity Urine 1.012 (1.000-1.030); Urobilinogen Urine Negative (Negative)
[2021-08-23] MEDS ORDERED: PIPERACILLIN/TAZOBACTAM 3.375 GM in DEXTROSE 5% 100 ML IV SCH (22:00)
--- NOTE | 2021-08-23 22:26 | Magnetic Resonance Report ---
MR foot LT w/o con CLINICAL HISTORY: Diabetic neuropathy. Left forefoot pain for one week. Evaluate for osteomyelitis. Attention to the first and second digits.. COMPARISON: Standard radiographs from 08/23/2021 TECHNIQUE: Multiplanar multisequence images of the distal left foot were performed without contrast. FINDINGS: Osseous structures:There is mild marrow edema present involving the distal phalanx of the great toe a nd the proximal, middle and distal phalanges of the second toe. No cortical destruction is seen. Rodriguez tracy, the findings are characteristic of early osteomyelitis. Homogeneous marrow signal is seen throughout the remaining imaged bones of the foot. There is no othe r evidence for marrow edema or marrow replacement. No evidence for fracture is seen. Joints: There is moderate to marked narrowing of the IP joints. There is also moderate to marked narr owing of the MTP joints. There is no evidence for joint effusion or erosive change. Tendons: The extensor tendons along the dorsum of the foot and the flexor tendons along the plantar a spect of the foot are intact. Ligaments: The imaged ligaments of the foot are intact. Soft tissues: There is diffuse subcutaneous soft tissue swelling involving the first and second toes characteristic of cellulitis. Diffuse edema also extends along the dorsum of the foot. There is suspi cion of an ulceration involving the great toe. IMPRESSION: 1. MR findings characteristic of early osteomyelitis involving the distal phalanx of the great toe an d the proximal, middle phalanges of the second toe as described above. 2. No evidence for cortical destruction. 3. Diffuse cellulitis. 4. Suspicion of soft tissue ulceration. ACT 112: Negative or not required by law. Electronically signed by: Tenzin Carter M.D. 08/23/2021 10:24 PM
[2021-08-24] MEDS ORDERED: METOPROLOL TARTRATE 50 MG TAB PO ONE (00:15)
[2021-08-24] MEDS: PIPERACILLIN/TAZOBACTAM 3.375 GM in DEXTROSE 5% 100 ML IV SCH ×3 (00:49→17:49)
[2021-08-24] MEDS: ACETAMINOPHEN 325 MG TAB PO PRN ×2 (04:22→18:56)
[2021-08-24] MEDS: HEPARIN SOD 5,000 UNIT/0.5 ML VIAL SQ SCH ×3 (05:55→21:24)
[2021-08-24 06:17] LABS: Basophils # (auto) 0.02 K/uL (0-0.2); Basophils % (auto) 0.2 %; Eosinophils # (auto) 0.08 K/uL (0-0.5); Eosinophils % (auto) 0.9 %; Hematocrit (blood only) 32.8 % (42-52); Hemoglobin 11.1 g/dL (14.0-18.0); Immature Granulocytes # (auto) 0.02 K/uL (0.00-0.02); Immature Granulocytes % (auto) 0.2 %; Lymphocytes % (auto) 11.3 %; Mean Corpuscular Hemoglobin 32.6 pg (25-34); Mean Corpuscular Hgb Conc 33.8 g/dL (32-36); Mean Corpuscular Volume 96.5 fL (80-100); Mean Platelet Volume 10.9 fL (7.4-10.4); Monocytes % (auto) 11.3 %; Neutrophils % (auto) 76.1 %; Platelet Count 222 K/uL (130-400); RDW Coefficient of Variation 12.7 % (11.5-14.5); RDW Standard Deviation 44.8 fL (36.4-46.3); White Blood Count 8.82 K/uL (4.8-10.8)
[2021-08-24 06:50] LABS: Albumin Level 2.2 gm/dl (3.4-5.0); BUN Creatinine Ratio 20.7 (10-20); Calcium 9.1 mg/dl (8.5-10.1); Creatinine Clr Calc Pharmacy 67.5 ml/min; Est GFR (African American) 69.3 ml/min; Est GFR (Non-African American) 59.8 ml/min
[2021-08-24] MEDS ORDERED: METOPROLOL TARTRATE 25 MG TAB PO SCH (07:00)
[2021-08-24 07:21] LABS: Albumin Globulin Ratio 0.5 (0.9-2); Bilirubin,Total 1.3 mg/dl (0.2-1); Globulin 4.8 gm/dl (2.5-4.0)
[2021-08-24 07:34] LABS: Estimated Average Glucose 214 mg/dl; Hemoglobin A1C 9.1 % (4.5-5.6)
[2021-08-24] MEDS: INSULIN ASPART 100 UNITS/ML 3 ML PEN SC SCH ×4 (08:17→21:25)
[2021-08-24] MEDS: ASPIRIN 325 MG ECTAB PO SCH (08:19)
[2021-08-24] MEDS: ISOSORBIDE MONO EXTENDED REL 30 MG TABCR PO SCH (08:19)
[2021-08-24] MEDS: MULTIVITAMIN TAB PO SCH (08:19)
[2021-08-24] MEDS: lisinopril 40 MG TAB PO SCH (08:19)
[2021-08-24] MEDS: FUROSEMIDE 20 MG TAB PO SCH (08:20)
[2021-08-24] MEDS: POTASSIUM CHLORIDE CRTAB 20 MEQ TABCR PO SCH (08:20)
[2021-08-24] MEDS: METOPROLOL TARTRATE 50 MG TAB PO SCH ×2 (08:20→21:23)
[2021-08-24] MEDS ORDERED: INSULIN HUMAN NPH SC ONE (08:30)
[2021-08-24] MEDS ORDERED: INSULIN HUMAN NPH SC SCH ×2 (09:00→16:30)
[2021-08-24 10:22] LABS: Hepatitis B Surf Ag Rflx Conf Neg (Neg)
[2021-08-24 10:51] LABS: Hepatitis C IgG 13Yrs+Old_Rflx Neg (Neg)
--- NOTE | 2021-08-24 11:43 | Orthopedic Consultation ---
Date of Consultation August 24, 2021 Assessment & Plan (1) Diabetic foot ulcers: X-rays and MRI reviewed by myself. Case discussed with Dr. Beard. Patient will likely require irrigation and debridement at the very minimum. Dr. Beard to review MRI to see if there is any need for removing bone. This will likely be done over the weekend depending on Dr. Beard schedule tomorrow. Continue IV antibiotics for now. Culture of foot drainage is pending. ID consult placed by medicine service. History of Present Illness Reason for Consultation: Left foot cellulitis with diabetic ulceration of the left great toe and left second toe Attending Physician: Mal Neville MD History of Present Illness This is a 66-year-old male who has significant past medical history of type 1 diabetes mellitus, diabetic neuropathy, diabetic nephropathy with CKD stage III anemia of chronic disease, chronic ischemic heart disease, history of CABG, HTN, HLD, gout, bladder cancerwho states with his diabetes, he has had some minor ulcerations in the past with his right foot. He states that he had a cardiac catheterization in the recent past which led to some lower extremity swelling on the left foot. He was fairly active over the weekend hunting and returned home. The following day he noted increased cellulitis of his left foot along with swelling. This progressively worsened. Patient has no documented fever, chills, nausea or vomiting. He was referred to his [employer] who noted the cellulitis and ulcerations of his first and second toes and was sent to the emergency room here at [facility]. Patient currently states that he has no pain currently in the left foot. He states he does have some sensation remaining however he will at times get painful twinges in the foot but nothing that is constant. He states that he has been treating superficial ulceration on the right great toe and that he is trying to make arrangements to change his orthotics. He was noted to have some ulcerations of his first and second toes with drainage. He was admitted for IV antibiotics and we have been asked to see him for his left toe ulcerations. Allergies Allergy/AdvReac Type Severity Reaction Status Date / Time No Known Allergies Allergy Verified 08/23/21 12:32 Home Medications Medication Instructions Recorded Confirmed Type aspirin 325 mg tablet 325 mg PO QAM 12/15/18 08/23/21 History atorvastatin 80 mg tablet 80 mg PO HS 12/15/18 08/23/21 History ezetimibe 10 mg tablet (Zetia) 10 mg PO HS 12/15/18 08/23/21 History insulin NPH isoph U-100 human 100 18 unit SUBCUT QPM 12/15/18 08/23/21 History unit/mL subcutaneous suspension (Novolin N NPH U-100 Insulin isophane) insulin NPH isoph U-100 human 100 42 unit SUBCUT QAM 12/15/18 08/23/21 History unit/mL subcutaneous suspension (Novolin N NPH U-100 Insulin isophane) insulin aspart U-100 100 unit/mL 0 unit SUBCUT BID 12/15/18 08/23/21 History subcutaneous cartridge (Novolog PenFill U-100 Insulin aspart) metoprolol tartrate 25 mg tablet 25 mg PO BID 12/15/18 08/23/21 History multivitamin 1 tab PO DAILY 12/15/18 08/23/21 History furosemide 40 mg tablet (Lasix) See Rx Instructions .ROUTE .COMPLEX 08/23/21 08/23/21 History isosorbide mononitrate 30 mg 30 mg PO DAILY 08/23/21 08/23/21 History tablet,extended release 24 hr lisinopril 40 mg tablet 40 mg PO DAILY 08/23/21 08/23/21 History terazosin 2 mg capsule 2 mg PO HS 08/23/21 08/23/21 History Patient History Medical History Arrhythmia "SKIPS A BEAT" CAD (coronary artery disease) Cancer BLADDER CANCER CKD (chronic kidney disease) stage 3, GFR 30-59 ml/min Diabetes mellitus type 1 Diabetic polyneuropathy Hyperlipidemia Hypertension Surgical History H/O transurethral destruction of bladder lesion History of cardiac cath 2000 History of cataract extraction with lens replacement RIGHT E[place], 12[place]24/18[place] [facility] [place] of colonoscopy History of coronary artery bypass graft 6 VESSELS (2000; [facility]) FOLLOWS WITH DR. CUADRA. History of cystoscopy Family History Father , 31 Myocardial infarction Social History Smoking Status: Former smoker Cigarettes Per Day: QUIT IN 1976; Smoking End Date: 1976; Second Hand Exposure: No; Hx Alcohol Use: Yes Alcohol type: beer Hx Substance Use: No Preferred Language: Setswana Communication Ability: Effective Horticulture Superintendent Required: No Beliefs That Will Affect Care: None marital status: Current Living Situation: Spouse Other Information That Helps Us Care for You: No Feels Safe at Home: Yes Safety Concerns: Feels Safe At This Time Assistive Devices: None Physical Exam Physical Exam: On examination, the patient is sitting up in bed awake and alert. He is in no acute distress, pleasant and cooperative. On examination of his left foot, sock is removed revealing some foul-smelling drainage coming from the left great toe that has a superficial infection under the skin on the plantar surface that is going somewhat medial around the toe. There is a darkened ulceration on the plantar surface near the DIP joint with also a noted callus that has formed on the plantar lateral aspect of the great toe. He has no pain on palpation. Erythema incorporates from the dorsum of the toe over the medial aspect. He has moderate erythema noted over the dorsum of the foot. Left second toe shows a superficial ulcer with a darkened section on the inferior aspect. He has a small amount of bloody drainage and drainage from this toe as well that is foul-smelling. Dressings were placed between the first and second toes and then incorporated around the ulcers. Dorsalis pedis pulse is faintly palpable for me. Patient states he does have neuropathy but does have some slight feeling remaining in the foot itself. Capillary refill is around 2 seconds Results & Data ([facility]) Vital Signs (Past 12 Hours) Vital Signs Temp Pulse Pulse Resp BP Pulse Ox 08/24/21 07:23 71 08/24/21 07:18 37.0 C 71 16 131/66 94 08/24/21 04:47 37.5 C 08/24/21 04:05 37.8 C H 77 16 146/70 H 95 Laboratory Results Laboratory Results WBC 8.82 K/uL (4.8-10.8) 08/24/21 05:41 RBC 3.40 M/uL (4.7-6.1) L 08/24/21 05:41 Hgb 11.1 g/dL (14.0-18.0) L 08/24/21 05:41 Hct 32.8 % (42-52) L 08/24/21 05:41 MCV 96.5 fL (80-100) 08/24/21 05:41 MCH 32.6 pg (25-34) 08/24/21 05:41 MCHC 33.8 g/dL (32-36) 08/24/21 05:41 RDW Std Deviation 44.8 fL (36.4-46.3) 08/24/21 05:41 RDW Coeff of Liseth 12.7 % (11.5-14.5) 08/24/21 05:41 Plt Count 222 K/uL (130-400) 08/24/21 05:41 MPV 10.9 fL (7.4-10.4) H 08/24/21 05:41 Immature Gran % (Auto) 0.2 % 08/24/21 05:41 Neut % (Auto) 76.1 % 08/24/21 05:41 Lymph % (Auto) 11.3 % 08/24/21 05:41 [place] % (Auto) 11.3 % 08/24/21 05:41 Eos % (Auto) 0.9 % 08/24/21 05:41 Baso % (Auto) 0.2 % 08/24/21 05:41 Neut # (Auto) 6.70 K/uL (1.4-6.5) H 08/24/21 05:41 Lymph # (Auto) 1.00 K/uL (1.2-3.4) L 08/24/21 05:41 [place] # (Auto) 1.00 K/uL (0.11-0.59) H 08/24/21 05:41 Eos # (Auto) 0.08 K/uL (0-0.5) 08/24/21 05:41 Baso # (Auto) 0.02 K/uL (0-0.2) 08/24/21 05:41 Immature Gran # (Auto) 0.02 K/uL (0.00-0.02) 08/24/21 05:41 ESR 80 mm/hr (0-20) H 08/23/21 11:40 PT 10.7 Seconds (9.0-12.0) 08/23/21 11:40 INR 1.1 (0.9-1.1) 08/23/21 11:40 APTT 28.5 Seconds (21.0-31.0) 08/23/21 11:40 PTT Ratio 1.1 08/23/21 11:40 Sodium 136 mmol/L (136-145) 08/24/21 05:41 Potassium 4.0 mmol/L (3.5-5.1) 08/24/21 05:41 Chloride 104 mmol/L (98-107) 08/24/21 05:41 Carbon Dioxide 27 mmol/L (21-32) 08/24/21 05:41 Anion Gap 5.0 (3-11) 08/24/21 05:41 BUN 26 mg/dl (7-18) H 08/24/21 05:41 Creatinine 1.24 mg/dl (0.6-1.4) 08/24/21 05:41 Est Cr Clr Drug Dosing 67.5 ml/min 08/24/21 05:41 Est GFR ( Amer) 69.3 ml/min 08/24/21 05:41 Est GFR (Non-Af Amer) 59.8 ml/min 08/24/21 05:41 BUN/Creatinine Ratio 20.7 (10-20) H 08/24/21 05:41 Glucose 90 mg/dl (70-99) 08/24/21 05:41 POC Glucose 217 mg/dl (70-99) H 08/24/21 11:34 Estimat Average Glucose 214 mg/dl 08/24/21 05:41 Hemoglobin A1c 9.1 % (4.5-5.6) H 08/24/21 05:41 Lactate 1.2 mmol/L (0.4-2.0) 08/23/21 12:39 Calcium 9.1 mg/dl (8.5-10.1) 08/24/21 05:41 Magnesium 2.4 mg/dl (1.8-2.4) 08/23/21 11:40 Total Bilirubin 1.3 mg/dl (0.2-1) H 08/24/21 05:41 AST 46 U/L (15-37) H 08/24/21 05:41 ALT 88 U/L (12-78) H 08/24/21 05:41 Alkaline Phosphatase 186 U/L (45-117) H 08/24/21 05:41 Total Creatine Kinase 59 U/L (39-308) 08/23/21 11:40 C-Reactive Protein 12.30 mg/dl (0-0.29) H 08/23/21 11:40 NT-Pro-B Natriuret Pep 1318 pg/ml (0-900) H 08/23/21 11:40 Total Protein 7.0 gm/dl (6.4-8.2) 08/24/21 05:41 Albumin 2.2 gm/dl (3.4-5.0) L 08/24/21 05:41 Globulin 4.8 gm/dl (2.5-4.0) H 08/24/21 05:41 Albumin/Globulin Ratio 0.5 (0.9-2) L 08/24/21 05:41 Procalcitonin 0.30 ng/ml (0-0.5) 08/23/21 11:40 Urine Color Yellow 08/23/21 21:02 Urine Appearance Clear (Clear) 08/23/21 21:02 Urine pH 6.0 (4.5-7.5) 08/23/21 21:02 Ur Specific [place] 1.012 (1.000-1.030) 08/23/21 21:02 Urine Protein Trace (Negative) H 08/23/21 21:02 Urine Glucose (UA) Negative (Negative) 08/23/21 21:02 Urine Ketones Negative (Negative) 08/23/21 21:02 Urine Blood Negative (Negative) 08/23/21 21:02 Urine Nitrite Negative (Negative) 08/23/21 21:02 Urine Bilirubin Negative (Negative) 08/23/21 21:02 Urine Urobilinogen Negative (Negative) 08/23/21 21:02 Ur Leukocyte Esterase Negative (Negative) 08/23/21 21:02 Urine WBC (Auto) 1-5 /hpf (0-5) 08/23/21 21:02 Urine RBC (Auto) 0-4 /hpf (0-4) 08/23/21 21:02 U Hyaline Cast (Auto) 0 /lpf (0-5) 08/23/21 21:02 U Epithel Cells (Auto) 0-5 /lpf (0-5) 08/23/21 21:02 Urine Bacteria (Auto) Negative (Negative) 08/23/21 21:02 SARS-CoV-2 (PCR) NEGATIVE (Negative) 08/23/21 12:30 Hep Bs Antigen Neg (Neg) 08/24/21 05:41 Hepatitis C Antibody Neg (Neg) 08/24/21 05:41 Foot X-Ray 08/23/21 11:57 LEFT FOOT 2 VIEWS CLINICAL HISTORY: Cellulitis. Diabetic foot ulcer. FINDINGS: AP and lateral views of the left foot are obtained. No prior studies are available for comparison at the time of dictation. The skeletal structures are osteopenic. No fracture is identified. Degenerative spurring is seen along the dorsal aspect of the tarsal bones. Mild arthritic change is seen throughout the foot. No bony erosion or periostitis is identified. A soft tissue ulceration with soft tissue gas is suggested along the plantar surface of the first toe. Diffuse soft tissue edema is present throughout the foot. There is advanced atherosclerotic calcification of the regional arteries. IMPRESSION: 1. No acute bony abnormality is identified. Specifically, there is no radiographic evidence of osteomyelitis on the provided images. 2. Diffuse soft tissue edema is typical for cellulitis. 3. Suspect a soft tissue ulceration with soft tissue gas along the plantar surface of the first toe. Electronically signed by: Camacho Merida M.D. 08/23/2021 12:35 PM Foot MRI 08/23/21 15:11 MR foot LT w/o con CLINICAL HISTORY: Diabetic neuropathy. Left forefoot pain for one week. Evaluate for osteomyelitis. Attention to the first and second digits.. COMPARISON: Standard radiographs from 08/23/2021 TECHNIQUE: Multiplanar multisequence images of the distal left foot were performed without contrast. FINDINGS: Osseous structures:There is mild marrow edema present involving the distal phalanx of the great toe and the proximal, middle and distal phalanges of the second toe. No cortical destruction is seen. However, the findings are characteristic of early osteomyelitis. Homogeneous marrow signal is seen throughout the remaining imaged bones of the foot. There is no other evidence for marrow edema or marrow replacement. No evidence for fracture is seen. Joints: There is moderate to marked narrowing of the IP joints. There is also moderate to marked narrowing of the MTP joints. There is no evidence for joint effusion or erosive change. Tendons: The extensor tendons along the dorsum of the foot and the flexor tendons along the plantar aspect of the foot are intact. Ligaments: The imaged ligaments of the foot are intact. Soft tissues: There is diffuse subcutaneous soft tissue swelling involving the first and second toes characteristic of cellulitis. Diffuse edema also extends along the dorsum of the foot. There is suspicion of an ulceration involving the great toe. IMPRESSION: 1. MR findings characteristic of early osteomyelitis involving the distal pha lanx of the great toe and the proximal, middle phalanges of the second toe as described above. 2. No evidence for cortical destruction. 3. Diffuse cellulitis. 4. Suspicion of soft tissue ulceration. ACT 112: Negative or not required by law. Electronically signed by: Tenzin Carter M.D. 08/23/2021 10:24 PM Duplex Scan Lower Extremity Artery 08/23/21 15:32 US arterial duplex LE LT CLINICAL HISTORY: dimished pulses. . Swelling of the left lower extremity with left toe pain COMPARISON: None. TECHNIQUE: Duplex sonography of lower extremity arterial system on the left was performed. Velocity measurements provided are in centimeters per second FINDINGS: Tenorio scale, Doppler spectral analysis, and color imaging performed. Left common femoral artery: Triphasic flow velocity. 133 Left profunda femoris artery: Triphasic flow velocity. 94 Left superficial femoral artery: Triphasic flow velocity. 211 distally Left popliteal artery: Triphasic flow velocity. 166 Left posterior tibial artery: Triphasic. flow velocity. 140 Left anterior tibial artery: Biphasic flow velocity. 232 Left dorsalis pedis artery: Monophasic flow velocity. 196 Left peroneal artery: Triphasic flow velocity. 93 Left flow velocities: Segmental elevation of flow velocities is demonstrated within the distal superficial femoral artery and within the anterior tibial artery characteristic of focal stenosis. IMPRESSION: There is minimal to moderate atherosclerotic plaque seen throughout the left lower extremity. Significantly elevated flow velocities are seen within the distal superficial femoral artery and the mid anterior tibial artery characteristic of focal stenosis. Monophasic waveforms are also seen within the dorsalis pedis artery. ACT 112: Negative or not required by law. Electronically signed by: Tenzin Carter M.D. 08/23/2021 5:31 PM (1) Diabetic foot ulcers Diabetic foot ulcer location: toe
--- NOTE | 2021-08-24 13:50 | Pharmacy Report ---
Pharmacy Glycemic Short Note 2 - Date of Service August 24, 2021 - Glycemic Short BSG Results (Last 24 hours): 08/23/21 08/23/21 08/23/21 17:21 17:23 17:40 Glucose POC Glucose 57 L* 64 L* 81 08/23/21 08/24/21 08/24/21 20:54 05:41 07:31 Glucose 90 POC Glucose 161 H 96 08/24/21 11:34 Glucose POC Glucose 217 H OUTPATIENT ANTIDIABETIC REGIMEN: * NPH 51 units SQ QAM * NPH 28 units SQ QPM * Novolog 14 units BID ASSESSMENT: * 66 y/o M admitted for foot cellulitis. Patient with history of Type 1 diabetes and diabetic neuropathy managed at home on NPH and Novolog insulin. * NPH 42 units taken prior to admission yesterday morning resulted in hypoglycemia at dinner time. Dose lowered this AM. * Fasting BSG today was 96 mg/dl. NPH dose at dinner ordered on a scale based on BSG. * Pre-lunch BSG trended up to 217 mg/dl. Novolog CF and CR tightened at lunch. PLAN FOR INPATIENT GLYCEMIC CONTROL: * Basal insulin * NPH 20 units SQ this AM * NPH 15 - 20 units scale SQ with dinner today * Bolus insulin * NovoLog per scale ACHS or Q6hrs while NPO * Goal Range: Low 110 mg/dL - High 140 mg/dL * Correction Factor: 20 mg/dL/unit * Nutritional / Prandial insulin per carb ratio of 1 unit per 7 grams CHO consumed PLAN FOR DISCHARGE: * TBD
[2021-08-24] MEDS ORDERED: DAPTOmycin 300 MG in SYRINGE 0 ML IV SCH (14:00)
[2021-08-24] MEDS: FUROSEMIDE 40 MG TAB PO SCH (14:13)
[2021-08-24] MEDS ORDERED: VANCOMYCIN CONSULT ACTIVE PRN (18:06)
--- NOTE | 2021-08-24 18:07 | Hospitalist Progress Note ---
Date of Service August 24, 2021 Assessment & Plan (1) Cellulitis of left foot: (2) Diabetic foot ulcers: (3) Diabetes mellitus type 1: (4) Diabetic polyneuropathy: (5) CKD (chronic kidney disease) stage 3, GFR 30-59 ml/min: (6) CAD (coronary artery disease): (7) Hypertension: (8) Hyperlipidemia: Plan: 66-year-old male w/ PMH of type 1 diabetes mellitus, diabetic neuropathy, diabetic nephropathy with CKD stage III, anemia of chronic disease, chronic ischemic heart disease, s/p CABG, HTN, HLD, gout, bladder cancer presented to the ED 08/23 at the referral of podiatry due to concern for left lower extremity cellulitis. He is being managed for the following: Left foot cellulitis Diabetic foot ulcer Diabetic polyneuropathy/DM type I In affected/necrotic ulceration of left toes and great toe Admitted to med telemetry WBC elevated at 12.8 1K at presentation; ESR 80; CRP 12.3 Admitting imagings: CXRconcern for pulmonary edema versus infectious process. Foot x-ray: No radiographic evidence of osteomyelitis. Diffuse soft tissue edema suggestive of cellulitis. Soft tissue gas along the plantar surface of the first toe. LLE US venous Doppler: No evidence of DVT. Left foot MRI: Suggestive of early osteomyelitis involving the distal phalanx of the great toe and the proximal, middle phalanges of the second toe with diffuse cellulitis and suspicion of soft tissue ulceration. Duplex scan lower extremity arterial: Minimal to moderate atherosclerotic plaque seen throughout the LLE. Findings suggestive of focal stenosis and early. Continue with daptomycin 08/23 and Zosyn 08/23 ---> 08/24 vancomycin, 2 oh/2 metronidazole, 08/24 cefepime Wound care consulted, orthopedics consulted. ID consulted. A1c of 9.1%, certified adaptive physical educator consulted. Glycemic pharmacy on board --> will DC with their recommendation. 08/23 wound culture growing group B beta strep, culture and sensitivity to follow . ID evaluated the patient 08/24: Switch Dapto to Vanco (trough 15-20), closely monitor renal function, switch Zosyn to cefepime IV and p.o. metronidazole. Obtain wound culture from OR. Final recommendation to follow after the OR findings/procedure and overall culture result. Orthopedics on board: Plan for irrigation and debridement likely over the weekend. c/w ATB, f/u final Cx result. Transaminitis LFT elevated at presentation, will get hepatic panel Admitting RUQ US:Nonvisualization of pancreas due to overlying bowel gas. Mild hepatomegaly with evidence for fatty infiltration of the liver. denies abd complaints, significant ETOH/tylenol use LFTs downtrending, continue to monitor IDDM Type 1 NPH/novolog per protocol A1c elevated greater than 9, glycemic pharmacy on board, certified adaptive physical educator consulted CKD 3, diabetic nephropathy monitor renal fxn avoid nephrotoxic agents CAD hx of CABG Diastolic dysfunction grade 2 continue asa, lisinopril, imdur, metoprolol, statin, Lasix Monitor electrolytes and replete as appropriate. daily weights/strict I&O, proBNP elevated at around 1300 cardiac cath 08/09 w/o evidence of occlusion, patent grafts HTN bp stable continue metoprolol, imdur, lisinopril Hypoalbuminemia consult pear picker to also aide in wound healing DVT ppx: SQ Heparin Dispo: med tele PCP: Teri FULL CODE Disposition: Uncertain at this time, will consult PT/OT once I&D is done, patient might need PICC line placement depending on ID recommendation after I&D. Admission and Anticipated Discharge Date Admission Date: August 23, 2021 Subjective Patient was lying in bed, NAD, room air, no new acute events overnight. Patient denies any fever/chills/chest pain/palpitation/headache/dizziness/shortness of breath/other review of symptoms. Patient is eating and moving bowels okay. Physical Exam Physical Exam: GENERAL: Alert and oriented x3. NAD, on RA. HEENT: No pallor, no icterus. Pupils equal, round and reactive to light. Oral mucosa moist. NECK: No JVD, no neck masses. HEART: S1 and S2 heard. Regular rate and rhythm. No murmur, no gallop. RESPIRATORY SYSTEM: Normal AP diameter. No accessory muscle use. No wheezing, no crackles. ABDOMEN: Soft, bowel sounds present, nontender, no distention. CENTRAL NERVOUS SYSTEM: Alert and oriented x3. No facial droop. Speech is clear. Obeys simple commands. Moves extremities. EXTREMITIES: RLE 1+ edema, LLE 2+ edema with erythema/tenderness of left foot with multiple ulcers under left toes/likely fluctuance under great toe. Results & Data Results & Data ([facility]) Vital Signs (Past 12 Hours) Vital Signs Temp Pulse Pulse Resp BP BP Pulse Ox 08/24/21 15:55 74 08/24/21 15:04 36.8 C 73 16 157/68 H 95 08/24/21 14:11 144/62 H 08/24/21 07:23 71 08/24/21 07:18 37.0 C 71 16 131/66 94 (1) Diabetic foot ulcers Diabetic foot ulcer location: toe
[2021-08-24] MEDS ORDERED: VANCOMYCIN HCL 2,250 MG in SODIUM CHLORIDE 0.9% 500 ML IV ONE (18:45)
--- NOTE | 2021-08-24 20:48 | Pharmacy Report ---
Pharmacy Abx Dose Short Note - Date of Service August 24, 2021 - Assessment & Plan Assessment 66 year old M receiving iv Vancomycin and Cefepime for treatment of left lower extremity cellulitis, s/p Daptomycin/Zosyn Pt with CKD III, Type 1 DM with neuropathy, Bladder CA Day # 1 of antimicrobial therapy. Plan Vancomycin * Vancomycin loading dose 2250mg (24.1 mg/kg) * Maintenance dose of 1250 mg IV every 12 hours * Goal trough level for cellulitis: 13 to 20 mcg/mL * Trough level ordered for: Saturday08/26/21 before the 8 AM dose Pharmacy will continue to follow and will adjust dose/frequency as necessary. Thank you.
[2021-08-24] MEDS: EZETIMIBE 10 MG TABLET PO SCH (21:23)
[2021-08-24] MEDS: TERAZOSIN HCL 1 MG CAP PO SCH (21:23)
[2021-08-24] MEDS: metroNIDAZOLE 500 MG TAB PO SCH (21:23)
[2021-08-24] MEDS: CEFEPIME 2,000 MG in SYRINGE 0 ML IV SCH (21:23)
[2021-08-25 03:35] LABS: Hepatitis A Antibody IgM NON-REACTIVE (NON-REACTIVE); Hepatitis B Core Antibody IgM NON-REACTIVE (NON-REACTIVE)
[2021-08-25] MEDS: HEPARIN SOD 5,000 UNIT/0.5 ML VIAL SQ SCH ×3 (05:32→21:36)
[2021-08-25 06:06] LABS: Hematocrit (blood only) 33.1 % (42-52); Hemoglobin 11.3 g/dL (14.0-18.0); Mean Corpuscular Hemoglobin 32.8 pg (25-34); Mean Corpuscular Hgb Conc 34.1 g/dL (32-36); Mean Corpuscular Volume 95.9 fL (80-100); Platelet Count 222 K/uL (130-400); RDW Coefficient of Variation 12.5 % (11.5-14.5); RDW Standard Deviation 43.8 fL (36.4-46.3); Red Blood Count 3.45 M/uL (4.7-6.1); White Blood Count 8.84 K/uL (4.8-10.8)
[2021-08-25 06:18] LABS: Creatinine Clr Calc Pharmacy 64.5 ml/min; Est GFR (African American) 65.4 ml/min; Est GFR (Non-African American) 56.5 ml/min
[2021-08-25 06:21] LABS: Bilirubin Direct 0.3 mg/dl (0-0.2); Bilirubin,Total 0.9 mg/dl (0.2-1); Total Protein 7.1 gm/dl (6.4-8.2)
[2021-08-25] MEDS ORDERED: INSULIN HUMAN NPH SC SCH ×4 (07:30→16:30)
[2021-08-25] MEDS: INSULIN ASPART 100 UNITS/ML 3 ML PEN SC SCH ×4 (08:24→21:37)
[2021-08-25] MEDS: metroNIDAZOLE 500 MG TAB PO SCH ×3 (08:26→21:32)
[2021-08-25] MEDS: ASPIRIN 325 MG ECTAB PO SCH (08:26)
[2021-08-25] MEDS: METOPROLOL TARTRATE 50 MG TAB PO SCH ×2 (08:26→21:32)
[2021-08-25] MEDS: ISOSORBIDE MONO EXTENDED REL 30 MG TABCR PO SCH (08:27)
[2021-08-25] MEDS: lisinopril 40 MG TAB PO SCH (08:27)
[2021-08-25] MEDS: MULTIVITAMIN TAB PO SCH (08:27)
[2021-08-25] MEDS: POTASSIUM CHLORIDE CRTAB 20 MEQ TABCR PO SCH (08:27)
[2021-08-25] MEDS: FUROSEMIDE 20 MG TAB PO SCH (08:27)
[2021-08-25] MEDS: CEFEPIME 2,000 MG in SYRINGE 0 ML IV SCH ×2 (09:03→19:48)
[2021-08-25] MEDS: VANCOMYCIN HCL 1,250 MG in SODIUM CHLORIDE 0.9% 250 ML IV SCH ×2 (09:04→19:51)
[2021-08-25] MEDS: FUROSEMIDE 40 MG TAB PO SCH (13:03)
--- NOTE | 2021-08-25 15:13 | Pharmacy Report ---
Pharmacy Glycemic Short Note 2 - Date of Service August 25, 2021 - Glycemic Short BSG Results (Last 24 hours): 08/24/21 08/24/21 08/25/21 16:58 20:12 07:27 POC Glucose 89 159 H 243 H 08/25/21 08/25/21 11:28 11:29 POC Glucose 342 H* 341 H* OUTPATIENT ANTIDIABETIC REGIMEN: * NPH 51 units SQ QAM * NPH 28 units SQ QPM * Novolog 14 units BID ASSESSMENT: 08/25/21 * BSGs yesterday were 06-213-21-159 mg/dL. Patient received 63 units of insulin with 35 units of basal and 28 units of bolus. * Basal rate of 62 units was probably too aggressive but basal rate of 35 units not sufficient. Will aim for basal rate of 45 units today. * Loosen CF as patient overcorrects. Continue CR. Background * 66 y/o M admitted for foot cellulitis. Patient with history of Type 1 diabetes and diabetic neuropathy managed at home on NPH and Novolog insulin. * NPH 42 units taken prior to admission yesterday morning resulted in hypoglycemia at dinner time. Dose lowered this AM. * Fasting BSG today was 96 mg/dl. NPH dose at dinner ordered on a scale based on BSG. * Pre-lunch BSG trended up to 217 mg/dl. Novolog CF and CR tightened at lunch. PLAN FOR INPATIENT GLYCEMIC CONTROL: * Basal insulin * NPH 25 units SQ this AM * NPH 20 units scale SQ with dinner today * Bolus insulin * NovoLog per scale ACHS or Q6hrs while NPO * Goal Range: Low 110 mg/dL - High 140 mg/dL * Correction Factor: 25 mg/dL/unit * Nutritional / Prandial insulin per carb ratio of 1 unit per 7 grams CHO consumed PLAN FOR DISCHARGE: * TBD
--- NOTE | 2021-08-25 16:07 | Hospitalist Progress Note ---
Date of Service August 25, 2021 Assessment & Plan (1) Cellulitis of left foot: (2) Diabetic foot ulcers: (3) Diabetes mellitus type 1: (4) Diabetic polyneuropathy: (5) CKD (chronic kidney disease) stage 3, GFR 30-59 ml/min: (6) CAD (coronary artery disease): (7) Hypertension: (8) Hyperlipidemia: Plan: 66-year-old male w/ PMH of type 1 diabetes mellitus, diabetic neuropathy, diabetic nephropathy with CKD stage III, anemia of chronic disease, chronic ischemic heart disease, s/p CABG, HTN, HLD, gout, bladder cancer presented to the ED 08/23 at the referral of podiatry due to concern for left lower extremity cellulitis. He is being managed for the following: Left foot cellulitis Diabetic foot ulcer Diabetic polyneuropathy/DM type I In affected/necrotic ulceration of left toes and great toe Admitted to med telemetry WBC elevated at 12.8 1K at presentation; ESR 80; CRP 12.3 Admitting imagings: CXRconcern for pulmonary edema versus infectious process. Foot x-ray: No radiographic evidence of osteomyelitis. Diffuse soft tissue edema suggestive of cellulitis. Soft tissue gas along the plantar surface of the first toe. LLE US venous Doppler: No evidence of DVT. Left foot MRI: Suggestive of early osteomyelitis involving the distal phalanx of the great toe and the proximal, middle phalanges of the second toe with diffuse cellulitis and suspicion of soft tissue ulceration. Duplex scan lower extremity arterial: Minimal to moderate atherosclerotic plaque seen throughout the LLE. Findings suggestive of focal stenosis and early. Continue with daptomycin 08/23 and Zosyn 08/23 ---> 08/24 vancomycin, 08/24 metronidazole, 08/24 cefepime Wound care consulted, orthopedics consulted. ID consulted. A1c of 9.1%, clinical document improvement educator consulted. Glycemic pharmacy on board --> will DC with their recommendation. 08/23 wound culture growing group B beta strep, final culture and sensitivity to follow. ID evaluated the patient 08/24: Switch Dapto to Vanco (trough 15-20), closely monitor renal function, switch Zosyn to cefepime IV and p.o. metronidazole. Obtain wound culture from OR. Final recommendation to follow after the OR findings/procedure and overall culture result. Orthopedics on board: Plan for irrigation and debridement likely tomorrow. N.p.o. midnight. c/w ATB, f/u final Cx result. Transaminitis LFT elevated at presentation, will get hepatic panel Admitting RUQ US:Nonvisualization of pancreas due to overlying bowel gas. Mild hepatomegaly with evidence for fatty infiltration of the liver. denies abd complaints, significant ETOH/tylenol use LFTs downtrending, continue to monitor IDDM Type 1 NPH/novolog per protocol A1c elevated greater than 9, glycemic pharmacy on board, clinical document improvement educator consulted CKD 3, diabetic nephropathy monitor renal fxn avoid nephrotoxic agents CAD hx of CABG Diastolic dysfunction grade 2 continue asa, lisinopril, imdur, metoprolol, statin, Lasix Monitor electrolytes and replete as appropriate. daily weights/strict I&O, proBNP elevated at around 1300 cardiac cath 08/09 w/o evidence of occlusion, patent grafts HTN bp stable continue metoprolol, imdur, lisinopril Hypoalbuminemia consult svp monetization to also aide in wound healing DVT ppx: SQ Heparin Dispo: med tele PCP: Teri FULL CODE Disposition: Uncertain at this time, will consult PT/OT once I&D is done, patient might need PICC line placement depending on ID recommendation after I&D. Admission and Anticipated Discharge Date Admission Date: August 23, 2021 Subjective Patient was lying in bed, NAD, room air, no new acute events overnight. Patient denies any fever/chills/chest pain/palpitation/headache/dizziness/shortness of breath/other review of symptoms. Patient is eating and moving bowels okay. Physical Exam Physical Exam: GENERAL: Alert and oriented x3. NAD, on RA. HEENT: No pallor, no icterus. Pupils equal, round and reactive to light. Oral mucosa moist. NECK: No JVD, no neck masses. HEART: S1 and S2 heard. Regular rate and rhythm. No murmur, no gallop. RESPIRATORY SYSTEM: Normal AP diameter. No accessory muscle use. No wheezing, no crackles. ABDOMEN: Soft, bowel sounds present, nontender, no distention. CENTRAL NERVOUS SYSTEM: Alert and oriented x3. No facial droop. Speech is clear. Obeys simple commands. Moves extremities. EXTREMITIES: RLE 1+ edema, LLE 2+ edema with erythema/tenderness of left foot with multiple ulcers under left toes/likely fluctuance under great toe. Results & Data Results & Data ([facility]) Vital Signs (Past 12 Hours) Vital Signs Temp Pulse Pulse Resp BP BP Pulse Ox 08/25/21 15:05 71 08/25/21 12:00 37.2 C 72 20 138/70 94 08/25/21 11:30 36.9 C 70 20 132/71 95 08/25/21 08:19 168/66 H 08/25/21 07:48 36.8 C 81 20 177/76 H 94 08/25/21 07:13 75 (1) Diabetic foot ulcers Diabetic foot ulcer location: toe
[2021-08-25] MEDS: ACETAMINOPHEN 325 MG TAB PO PRN (19:38)
[2021-08-25] MEDS: EZETIMIBE 10 MG TABLET PO SCH (21:31)
[2021-08-25] MEDS: ATORVASTATIN 40 MG TAB PO SCH (21:31)
[2021-08-25] MEDS: TERAZOSIN HCL 1 MG CAP PO SCH (21:33)
[2021-08-26] MEDS: HEPARIN SOD 5,000 UNIT/0.5 ML VIAL SQ SCH ×3 (05:16→21:03)
[2021-08-26] MEDS ORDERED: INSULIN HUMAN NPH SC SCH ×2 (06:00→16:30)
[2021-08-26] MEDS: INSULIN ASPART 100 UNITS/ML 3 ML PEN SC SCH ×5 (06:08→20:55)
--- NOTE | 2021-08-26 06:27 | Anesthesiology Consultation ---
Date of Service August 26, 2021 Assessment & Plan Chart Review Chart Review: Acceptable Risk for Surgery and Patient NOT seen in Pre Admission Testing Consults Requested none ASA ASA4 Proposed Anesthesia Anesthesia Type: General History Surgery Operation Date: 08/26/21 07:30 Proposed Procedures p Incision and Drainage, Left Great Toe, Left 2nd Toe Infection, Possible Distal Phalangeal First Great Toe, 2nd Toe - Néstor Beard DO Height/Weight Height: 5 ft 11 in Weight: 93.7 kg Allergies Allergy/AdvReac Type Severity Reaction Status Date / Time No Known Allergies Allergy Verified 08/23/21 12:32 Medications Home Medications Medication Instructions Recorded Confirmed Last Taken aspirin 325 mg tablet 325 mg PO QAM 12/15/18 08/23/21 08/23/21 atorvastatin 80 mg tablet 80 mg PO HS 12/15/18 08/23/21 08/22/21 ezetimibe 10 mg tablet (Zetia) 10 mg PO HS 12/15/18 08/23/21 08/22/21 insulin NPH isoph U-100 human 100 18 unit SUBCUT QPM 12/15/18 08/23/21 08/22/21 unit/mL subcutaneous suspension (Novolin N NPH U-100 Insulin isophane) insulin NPH isoph U-100 human 100 42 unit SUBCUT QAM 12/15/18 08/23/21 08/23/21 unit/mL subcutaneous suspension (Novolin N NPH U-100 Insulin isophane) insulin aspart U-100 100 unit/mL 0 unit SUBCUT BID 12/15/18 08/23/21 12/23/18 subcutaneous cartridge (Novolog PenFill U-100 Insulin aspart) metoprolol tartrate 25 mg tablet 25 mg PO BID 12/15/18 08/23/21 08/23/21 08:00 multivitamin 1 tab PO DAILY 12/15/18 08/23/21 08/23/21 furosemide 40 mg tablet (Lasix) See Rx Instructions .ROUTE .COMPLEX 08/23/21 08/23/21 08/23/21 08:00 isosorbide mononitrate 30 mg 30 mg PO DAILY 08/23/21 08/23/21 08/23/21 tablet,extended release 24 hr lisinopril 40 mg tablet 40 mg PO DAILY 08/23/21 08/23/21 08/23/21 terazosin 2 mg capsule 2 mg PO HS 08/23/21 08/23/21 08/22/21 Active Medications Generic Name Dose Route Start Last Admin Trade Name Marshallq PRN Reason Stop Dose Admin Acetaminophen 650 mg 08/23/21 17:33 08/25/21 19:38 Acetaminophen 325 Mg Tab PO 09/22/21 17:32 650 mg Q4H PRN Administration Pain or Fever Aspirin 325 mg 08/24/21 09:00 08/25/21 08:26 Aspirin 325 Mg Ectab PO 09/23/21 08:59 325 mg QAM RUCHI Administration Atorvastatin Calcium 80 mg 08/25/21 21:00 08/25/21 21:31 Atorvastatin 40 Mg Tab PO 09/24/21 20:59 80 mg HS RUCHI Administration Ezetimibe 10 mg 08/23/21 21:00 08/25/21 21:31 Ezetimibe 10 Mg Tablet PO 09/22/21 20:59 10 mg HS RUCHI Administration Furosemide 60 mg 08/24/21 09:00 08/25/21 08:27 Furosemide 20 Mg Tab PO 09/23/21 08:59 60 mg DAILY RUCHI Administration Furosemide 40 mg 08/24/21 14:00 08/25/21 13:03 Furosemide 40 Mg Tab PO 09/23/21 13:59 40 mg DAILY@1400 RUCHI Administration Heparin Sodium (Porcine) 5,000 units 08/23/21 22:00 08/26/21 05:16 Heparin Sod 5,000 Unit/0.5 Ml Vial SQ 09/22/21 21:59 Not Given Q8 RUCHI Vancomycin HCl 1,250 mg/ 275 mls @ 200 mls/hr 08/25/21 08:00 08/25/21 21:29 Sodium Chloride IV 08/31/21 19:59 Infused Q12H [facility] Infusion Protocol Cefepime HCl 2,000 mg/ Syringe 20 mls @ 5 mls/min 08/24/21 20:00 08/25/21 19:48 IV 08/31/21 19:59 5 mls/min Q12H RUCHI Administration Protocol Insulin Aspart 0 units 08/23/21 17:33 08/26/21 06:08 Insulin Aspart 100 Units/Ml 3 Ml Pen SC 09/22/21 17:32 6 units ACHS RUCHI Administration Insulin Human NPH 20 units 08/25/21 16:30 08/25/21 17:18 Insulin Human Nph SC 09/24/21 16:29 20 units QDD RUCHI Administration Protocol Isosorbide Mononitrate 30 mg 08/24/21 09:00 08/25/21 08:27 Isosorbide [place] Extended Rel 30 Mg Tabcr PO 09/23/21 08:59 30 mg DAILY RUCHI Administration Lisinopril 40 mg 08/24/21 09:00 08/25/21 08:27 Lisinopril 40 Mg Tab PO 09/23/21 08:59 40 mg DAILY RUCHI Administration Metoprolol Tartrate 50 mg 08/24/21 09:00 08/25/21 21:32 Metoprolol Tartrate 50 Mg Tab PO 09/23/21 08:59 50 mg BID RUCHI Administration Metronidazole 500 mg 08/24/21 21:00 08/25/21 21:32 Metronidazole 500 Mg Tab PO 08/31/21 20:59 500 mg TID RUCHI Administration Multivitamins 1 tab 08/24/21 09:00 08/25/21 08:27 Multivitamin Tab PO 09/23/21 08:59 1 tab QAM RUCHI Administration Potassium Chloride 20 meq 08/24/21 09:00 08/25/21 08:27 Potassium Chloride Crtab 20 Meq Tabcr PO 09/23/21 08:59 20 meq QAM RUCHI Administration Terazosin HCl 2 mg 08/23/21 21:00 08/25/21 21:33 Terazosin Hcl 1 Mg Cap PO 09/22/21 20:59 2 mg HS RUCHI Administration Past Medical History Medical History Arrhythmia "SKIPS A BEAT" CAD (coronary artery disease) Cancer BLADDER CANCER CKD (chronic kidney disease) stage 3, GFR 30-59 ml/min Diabetes mellitus type 1 Diabetic polyneuropathy Hyperlipidemia Hypertension Exercise / Class Metabolic Activity III < 4 Walking/Shop/Light housework Past Family History Family History Father , 31 Myocardial infarction Past Surgical History Surgical History H/O transurethral destruction of bladder lesion History of cardiac cath 2001 History of cataract extraction with lens replacement RIGHT EYE, 12/24/18, [facility] [place] History of colonoscopy History of coronary artery bypass graft 6 VESSELS (2000; [facility]) FOLLOWS WITH DR. CUADRA. History of cystoscopy Past Anesthesia History No Hx of Anesthesia Complications and No Family Hx of Anesthesia Complications History of PONV No Hx of PONV and No Hx of Motion Sickness Social History Smoking Status: Former smoker tobacco type: cigarettes Smoking cigarettes per day: QUIT IN 1976 Smoking End Date: 1976 Hx Alcohol Use: Yes Alcohol type: beer alcohol intake frequency: a few times a month Hx Substance Use: No substance use type: does not use Physical Exam Vital Signs Last Vital Signs Temp 36.9 C 08/26/21 03:55 Pulse 60 08/26/21 03:55 Resp 18 08/26/21 03:55 BP 143/59 H 08/26/21 03:55 Pulse Ox 96 08/26/21 03:55 Testing Laboratory Results 08/25/21 05:34 08/25/21 05:34 PT 10.7 Seconds (9.0-12.0) 08/23/21 11:40 INR 1.1 (0.9-1.1) 08/23/21 11:40 APTT 28.5 Seconds (21.0-31.0) 08/23/21 11:40 Hemoglobin A1c 9.1 % (4.5-5.6) H 08/24/21 05:41 Urine Color Yellow 08/23/21 21:02 Urine Appearance Clear (Clear) 08/23/21 21:02 Urine pH 6.0 (4.5-7.5) 08/23/21 21:02 Ur Specific [place] 1.012 (1.000-1.030) 08/23/21 21:02 Urine Protein Trace (Negative) H 08/23/21 21:02 Urine Glucose (UA) Negative (Negative) 08/23/21 21:02 Urine Ketones Negative (Negative) 08/23/21 21:02 Urine Nitrite Negative (Negative) 08/23/21 21:02 Ur Leukocyte Esterase Negative (Negative) 08/23/21 21:02 Urine WBC (Auto) 1-5 /hpf (0-5) 08/23/21 21:02 Urine RBC (Auto) 0-4 /hpf (0-4) 08/23/21 21:02 U Hyaline Cast (Auto) 0 /lpf (0-5) 08/23/21 21:02 U Epithel Cells (Auto) 0-5 /lpf (0-5) 08/23/21 21:02 Urine Bacteria (Auto) Negative (Negative) 08/23/21 21:02 08/23/21 18:20 Gram Stain - Final Foot Wound Culture - Preliminary Group B Beta Strep Staphylococcus species Gram negative bacilli 08/23/21 12:39 Aerobic Blood Culture - Preliminary Blood No growth in Aerobic bottle after 48 hours. Anaerobic Blood Culture - Preliminary No growth in Anaerobic bottle after 48 hours. 08/23/21 11:40 Aerobic Blood Culture - Preliminary Blood No growth in Aerobic bottle after 48 hours. Anaerobic Blood Culture - Preliminary No growth in Anaerobic bottle after 48 hours. 08/23/21 12:20 Gram Stain - Final Toe,Left Third Wound Culture - Preliminary Group B Beta Strep Staphylococcus species 08/26/21 08/25/21 05:52 20:16 POC Glucose 273 H 172 H Electrocardiogram Date: 08/23/21 Findings: + NSR @ (at 93 w/ 1st degree avb) Chest X-Ray Date: 08/23/21 Findings: + cardiomegaly and + pulmonary vascular congestion (? mild)
[2021-08-26] MEDS ORDERED: LIDOCAINE 2% 2 ML VIAL/AMP(20MG/ML) INFIL ONE ×2 (06:53)
[2021-08-26] MEDS ORDERED: VANCOMYCIN TROUGH ONE (07:30)
[2021-08-26] MEDS ORDERED: BUPIVACAINE 0.5 % 5 MG/1 ML MPF 30ML VIAL ONE (07:38)
[2021-08-26] MEDS ORDERED: MIDAZOLAM HCL 1 MG/ML 2ML VIAL ONE (07:41)
[2021-08-26] MEDS ORDERED: fentaNYL citrate 100 MCG/2 ML VIAL ONE (07:42)
[2021-08-26] MEDS ORDERED: fentaNYL citrate 100 MCG/2 ML VIAL IV PRN (07:44)
[2021-08-26] MEDS ORDERED: NALOXONE HCL 0.4 MG/1 ML VIAL/CARP IV PRN ×2 (07:44→10:08)
[2021-08-26] MEDS ORDERED: LABETALOL HCL IV 5 MG/ML 20ML IV PRN (07:44)
[2021-08-26] MEDS ORDERED: PROMETHAZINE HCL 12.5 MG in SODIUM CHLORIDE 0.9% 50 ML IV PRN (07:44)
[2021-08-26] MEDS ORDERED: ATROPINE SULFATE 0.1 MG/ML 10ML SYR IV PRN (07:44)
[2021-08-26] MEDS ORDERED: FLUMAZENIL 0.1 MG/1 ML 10 ML VIAL IV PRN (07:44)
[2021-08-26] MEDS ORDERED: ONDANSETRON INJ 2 MG/ML 2 ML VIAL IV PRN ×2 (07:44→10:08)
[2021-08-26] MEDS ORDERED: ePHEDrine sulfate 50 MG/ML AMP IV PRN (07:44)
--- NOTE | 2021-08-26 07:55 | History & Physical Bridge Note ---
Date of Service August 26, 2021 History & Physical Bridge Note I have examined the patient, reviewed the History & Physical and in the interval since the performance of the History & Physical I have noted the following changes of clinical significance: no changes noted
[2021-08-26 08:04] LABS: Est GFR (African American) 68.6 ml/min; Est GFR (Non-African American) 59.2 ml/min
[2021-08-26] MEDS ORDERED: ESMOLOL HCL INJ 10 MG/ML 10ML VIAL IV ONE (08:08)
[2021-08-26] MEDS ORDERED: ONDANSETRON INJ 2 MG/ML 2 ML VIAL ONE (08:23)
[2021-08-26] MEDS: VANCOMYCIN HCL 1,250 MG in SODIUM CHLORIDE 0.9% 250 ML IV SCH (09:32)
--- NOTE | 2021-08-26 09:38 | Post Operative Brief Note ---
Immediate Post Op Note v1 Date of Surgery August 26, 2021 Pre & Post Diagnosis Operation Date: 08/26/21 07:30 Pre-Op Diagnosis: LEFT FOOT OSTEOMYELITIS DISTAL PHALANX GREAT TOE, OSTEOMYELITIS MIDDLE AND DISTAL PHALANGES SECOND TOE, ABSCESS GREAT TOE, WET GANGRENE GREAT TOE, CELLULITIS LEFT FOOT, DIABETIC ULCERS great toe and second toe Post-Op Diagnosis: LEFT FOOT OSTEOMYELITIS DISTAL PHALANX GREAT TOE, OSTEOMYELITIS MIDDLE AND DISTAL PHALANGES SECOND TOE, ABSCESS GREAT TOE, WET GANGRENE GREAT TOE, CELLULITIS LEFT FOOT, DIABETIC ULCERS great toe and second toe I identified the patient and participated in the time-out.: Yes Procedure Operation Date: 08/26/21 07:30 Actual Procedures p left foot great toe amputation distal phalanx, incision and drainage abscess great toe, second toe amputation distal and middle phalanges, debridement and tenosynovectomy flexor hallucis longus septic tendon (Left) - Néstor Beard DO Surgeon Néstor Beard DO Wide Load Escort Liz Harley PA-C Estimated Blood Loss 1 Findings Consistent with Post-Op Diagnosis Specimens Aerobic, anaerobic, Gram stain abscess great toe Amputated parts great toe and second toe Anesthesia Type General Regional Complications none Disposition Accompanied Patient To Recovery: No
--- NOTE | 2021-08-26 10:05 | Anesthesiology Progress Note ---
Date of Service August 26, 2021 Anesthesia Post Procedure Vital Signs Vital Signs: Temp Pulse Pulse Pulse Resp BP BP 08/26/21 09:50 36.2 C L 82 19 141/65 H 08/26/21 09:40 83 19 131/67 08/26/21 09:30 86 18 137/64 08/26/21 09:24 36.6 C 89 20 134/62 08/26/21 07:00 93 H 08/26/21 03:55 36.9 C 60 18 143/59 H 08/25/21 23:04 37.1 C 57 L 16 143/68 H 08/25/21 22:20 61 08/25/21 19:50 36.7 C 77 18 152/53 H 08/25/21 15:05 71 08/25/21 12:00 37.2 C 72 20 138/70 08/25/21 11:30 36.9 C 70 20 132/71 Pulse Ox 08/26/21 09:50 95 08/26/21 09:40 97 08/26/21 09:30 97 08/26/21 09:24 98 08/26/21 07:00 08/26/21 03:55 96 08/25/21 23:04 97 08/25/21 22:20 08/25/21 19:50 97 08/25/21 15:05 08/25/21 12:00 94 08/25/21 11:30 95 Pain Intensity Left Toe: Pain Intensity: 3 Transfer of Care Handoff Completed per policy Notes Mental Status: alert / awake / arousable Patient Amnestic to Procedure: Yes Nausea / Vomiting: adequately controlled Pain: adequately controlled Airway Patency, RR, SpO2: stable & adequate BP & HR: stable & adequate Hydration State: stable & adequate Anesthetic Complications: no major complications apparent
[2021-08-26] MEDS ORDERED: MAGNESIUM HYDROXIDE SUSP 30 ML UDC PO PRN (10:08)
[2021-08-26] MEDS ORDERED: METOCLOPRAMIDE HCL INJ 5 MG/ML 2 ML VIAL IV PRN (10:08)
[2021-08-26] MEDS ORDERED: bisacodyL 10 MG SUPP PR PRN (10:08)
--- NOTE | 2021-08-26 10:14 | Pharmacy Report ---
Pharmacy Vanc AUC Short Note - Date of Service August 26, 2021 - Assessment & Plan Assessment 66 year old M receiving vancomycin/cefepime/flagyl for L foot cellulitis/ulcer. L foot MRI suggestive of early osteomyelitis. ID consulted. Patient to have debridement of foot today. Awaiting final culture results Vancomycin * AUC/RONALD is the preferred PK/PD target for vancomycin * AUC guided dosing is effective and associated with decreased risk of nephrotoxicity compared to traditional trough targets * Trough level this AM came back at ~22 mcg/ml. Goal trough closer to ~20 mcg/ml reasonable. Patient received vancomycin dose this AM. Will decrease dosing to vancomycin 750 mg iv q 12 hrs to target lower trough level * This new dosing is predicted to achieve trough ~17 mcg/ml, target AUC/RONALD of 400-600 mg/L.hr and may be associated with a 14 % risk of nephrotoxicity * Plan to start new vancomycin dosing when estimated level closer to ~15 mcg/ml * Will plan to recheck trough in next 2 days if still continued Pharmacy will continue to follow and will adjust dose/frequency as necessary. Thank you.
[2021-08-26] MEDS: MULTIVITAMIN TAB PO SCH (10:42)
[2021-08-26] MEDS: ISOSORBIDE MONO EXTENDED REL 30 MG TABCR PO SCH (10:42)
[2021-08-26] MEDS: lisinopril 40 MG TAB PO SCH (10:42)
[2021-08-26] MEDS: ASPIRIN 325 MG ECTAB PO SCH (10:42)
[2021-08-26] MEDS: FUROSEMIDE 20 MG TAB PO SCH (10:42)
[2021-08-26] MEDS: METOPROLOL TARTRATE 50 MG TAB PO SCH ×2 (10:42→20:51)
[2021-08-26] MEDS: metroNIDAZOLE 500 MG TAB PO SCH ×3 (10:43→20:53)
[2021-08-26] MEDS: POTASSIUM CHLORIDE CRTAB 20 MEQ TABCR PO SCH (10:43)
[2021-08-26] MEDS: SODIUM CHLORIDE 0.9% 1000ML 1,000 ML IV SCH ×2 (10:44→20:43)
[2021-08-26] MEDS ORDERED: INSULIN HUMAN NPH SC ONE ×2 (10:45→21:45)
[2021-08-26] MEDS: CEFEPIME 2,000 MG in SYRINGE 0 ML IV SCH ×2 (10:49→20:43)
--- NOTE | 2021-08-26 10:57 | Operative Report (OR) ---
DATE OF PROCEDURE: 08/26/2021 PREOPERATIVE DIAGNOSES: 1. Left foot osteomyelitis of the distal phalanx of great toe. 2. Osteomyelitis, middle and distal phalanges of the second toe. 3. Abscess of the great toe. 4. Wet gangrene of the great toe. 5. Cellulitis, left foot. 6. Diabetic ulcers, great toe and second toe. POSTOPERATIVE DIAGNOSES: 1. Left foot osteomyelitis of the distal phalanx of great toe. 2. Osteomyelitis, middle and distal phalanges of the second toe. 3. Abscess of the great toe. 4. Wet gangrene of the great toe. 5. Cellulitis, left foot. 6. Diabetic ulcers, great toe and second toe. 7. Septic tenosynovitis of the flexor tendon, great toe. PROCEDURE: 1. Left foot great toe amputation, distal phalanx. 2. Incision and drainage of abscess, great toe. 3. Second toe amputation, distal and middle phalanges. 4. Debridement and tenosynovectomy of the flexor hallucis longus septic tendon. SURGEON: Néstor Beard DO BUSINESS SERVICES SALES REPRESENTATIVE: Liz Harley PA-C, who was present for patient positioning, sterile prep and mauro pe, management of retractors and instruments. He was present through the critical portions of the juany e including wound closure, application of sterile dressing and transport of the patient to recovery. ANESTHESIA: General, regional. SPECIMENS: 1. Aerobic, anaerobic, Gram stain abscess, great toe. 2. Amputated parts, great toe and second toe. DRAINS: None. COMPLICATIONS: None. BLOOD LOSS: 1 mL. PERTINENT HISTORY: This is a 66-year-old gentleman who has had ongoing chronic and progressive left foot 1st and 2nd toe ulcerations with intermittent foul odor and discharge and purulent drainage. He was under the care of the [facility] podiatry group and then developed worsening of his symptoms, and he was then sent to the Emergency Department, he was admitted to the hospitalist service, placed on IV antibiotics. Orthopedics was consulted. The patient was evaluated. Radiographs and MRI demonstr ate findings consistent with osteomyelitis of the distal phalanges of the second toe and the great to e with abscess likely with a wet gangrene. The patient was scheduled for surgery as indicated. All potential risks, benefits, complications, alternatives, rehab potential for incomplete relief of symptoms, need for further surgery, DVT, PE, , persistent pain, swelling, scarring, weakness, ne urovascular injury, wound complications, need for further amputation was discussed with the patient a nd the patient decided to proceed with the procedure as indicated. DESCRIPTION OF PROCEDURE: The patient was taken to the operative suite and placed supine on the oper ating table. After review of consent and identification of proper site, the patient was anesthetized , LMA was placed. Left lower extremity was then sterilely prepped and draped in the usual sterile fa shion, elevated and partially exsanguinated from the mid foot proximally with an Esmarch bandage. An Esmarch tourniquet was applied over sterile surgical towel at the level of the ankle. After surgical timeout was performed, digital blocks were performed with 0.5% Marcaine at the bases of the first an d second toes. Once this was completed, a skin marker was used to tyrel out the tissue flaps. The se cond tissue flap was marked out from the proximal interphalangeal joint distally for the longer plant ar flap and the great toe due to the wet gangrene tissue necrosis and open ulcerations in the plantar aspect of the great toe, a dorsal longer flap had to be grafted and then a shorter plantar flap due to the tissue necrosis. Next, a #15 blade scalpel was used to begin on the second toe at the proximal interphalangeal joint t ransversely down through the skin, extensor capsule, and to the level of bone. Next, the medial and lateral tissue flaps were extended distally to the level of approximately the DIP joint. Next, the collateral ligaments and the capsular ligaments were then sacrificed with a 15-blade scalpe l and the second toe middle and distal phalanges were then amputated and sent off as specimen. Next, the flap was then revised to have a low tension closure and then attention was then directed to chamberlain the great toe, at which point 15 blade scalpel was used to make an incision just proximal to the eponychial fold in the nail plate and then extending proximally to excise the necrotic wet gangrene with necrotic tissue on the plantar aspect of the toe pad with obvious caseative necrosis. A probe w as inserted into two of the separate ulcerations on the plantar aspect of the great toe, probed to red ne without difficulty and then with pressure, the forcep violated the cortex consistent with osteomye litis and destruction of the bone. This confirmed that the distal phalanx would need to be resected today during the case. Similarly, a probe was inserted to the distal tip of the second toe and the f orcep had zero resistance to passing through the bone all the way through the distal phalanx and midw ay through the middle phalanx consistent with osteomyelitis. Continuing, the #15 blade was then used to incise through the extensor into the joint capsule dorsally and a skin hook was then used to retr act the dorsal flap, it was protected and the collaterals and the capsular ligaments were then incise d with a #15 blade scalpel along the plantar aspect of the great toe and then the distal phalanx was then removed and then sent off as specimen. There was noted to be an abscess deep and medial. Absce ss fluid was then sampled for aerobic, anaerobic Gram stain to confirm bacterial identification. This was passed off. Next, the flexor hallucis longus tendon was noted to have features consistent with suppurative tenosynovitis. The damaged portion of the tendon was then sharply debrided back to more stable healthy tissue and a tenosynovectomy was performed with a rongeur. Next, after all necrotic tissue and debris was sharply excised, pulsatile lavage 3 liters with Ancef was then used to lavage the first and second toes until clear. Next, a full thickness low tension ti ssue closure was performed of the flaps with interrupted 3-0 nylon sutures. Once this was completed, a sterile compressive forefoot dressing was applied. The tourniquet was released. Normal hyperemic response returned to the lesser toes. The patient was awakened and taken to recovery in [facility]. Job ID: [id number]
[2021-08-26] MEDS: oxyCODONE HCL IR 5 MG TAB (IMMEDIATE RELEASE) PO PRN ×2 (14:29→22:22)
[2021-08-26] MEDS: FUROSEMIDE 40 MG TAB PO SCH (15:23)
--- NOTE | 2021-08-26 19:31 | Hospitalist Progress Note ---
Date of Service August 26, 2021 Assessment & Plan (1) Cellulitis of left foot: (2) Diabetic foot ulcers: (3) Diabetes mellitus type 1: (4) Diabetic polyneuropathy: (5) CKD (chronic kidney disease) stage 3, GFR 30-59 ml/min: (6) CAD (coronary artery disease): (7) Hypertension: (8) Hyperlipidemia: Plan: 66-year-old male w/ PMH of type 1 diabetes mellitus, diabetic neuropathy, diabetic nephropathy with CKD stage III, anemia of chronic disease, chronic ischemic heart disease, s/p CABG, HTN, HLD, gout, bladder cancer presented to the ED 08/23 at the referral of podiatry due to concern for left lower extremity cellulitis. He is being managed for the following: Left foot cellulitis Diabetic foot ulcer Diabetic polyneuropathy/DM type I In affected/necrotic ulceration of left toes and great toe Admitted to med telemetry WBC elevated at 12.8 1K at presentation; ESR 80; CRP 12.3 Admitting imagings: CXRconcern for pulmonary edema versus infectious process. Foot x-ray: No radiographic evidence of osteomyelitis. Diffuse soft tissue edema suggestive of cellulitis. Soft tissue gas along the plantar surface of the first toe. LLE US venous Doppler: No evidence of DVT. Left foot MRI: Suggestive of early osteomyelitis involving the distal phalanx of the great toe and the proximal, middle phalanges of the second toe with diffuse cellulitis and suspicion of soft tissue ulceration. Duplex scan lower extremity arterial: Minimal to moderate atherosclerotic plaque seen throughout the LLE. Findings suggestive of focal stenosis and early. Continue with daptomycin 08/23 and Zosyn 08/23 ---> 08/24 vancomycin, 08/24 metronidazole, 08/24 cefepime Wound care consulted, orthopedics consulted. ID consulted. A1c of 9.1%, salvage engineering technician consulted. Glycemic pharmacy on board --> will DC with their recommendation. 08/23 wound culture growing group B beta strep, final culture and sensitivity to follow. ID evaluated the patient 08/24: Switch Dapto to Vanco (trough 15-20), closely monitor renal function, switch Zosyn to cefepime IV and p.o. metronidazole. Obtain wound culture from OR. Final recommendation to follow after the OR findings/procedure and overall culture result. Orthopedics on board: 08/26 status post left great toe amputation [distal phalanx], I & D of great toe abscess, second toe amputation [distal and middle phalanges], debridement and tenosynovectomy of the flexor hallucis longus septic tendon. c/w ATB, f/u final Cx result. Transaminitis LFT elevated at presentation, will get hepatic panel Admitting RUQ US:Nonvisualization of pancreas due to overlying bowel gas. Mild hepatomegaly with evidence for fatty infiltration of the liver. denies abd complaints, significant ETOH/tylenol use LFTs downtrending, continue to monitor IDDM Type 1 NPH/novolog per protocol A1c elevated greater than 9, glycemic pharmacy on board, salvage engineering technician consulted CKD 3, diabetic nephropathy monitor renal fxn avoid nephrotoxic agents CAD hx of CABG Diastolic dysfunction grade 2 continue asa, lisinopril, imdur, metoprolol, statin, Lasix Monitor electrolytes and replete as appropriate. daily weights/strict I&O, proBNP elevated at around 1300 cardiac cath 08/09 w/o evidence of occlusion, patent grafts HTN bp stable continue metoprolol, imdur, lisinopril Hypoalbuminemia consult television analyzer to also aide in wound healing DVT ppx: SQ Heparin Dispo: med tele PCP: Teri FULL CODE Disposition: Uncertain at this time, will consult PT/OT once I&D is done, patient might need PICC line placement depending on ID recommendation after I&D. Admission and Anticipated Discharge Date Admission Date: August 23, 2021 Subjective Patient was lying in bed, NAD, room air, no new acute events overnight. Patient denies any fever/chills/chest pain/palpitation/headache/dizziness/shortness of breath/other review of symptoms. Patient is eating and moving bowels okay. Patient is a status post left foot great toe amputation and incision and drainage of abscess. Physical Exam Physical Exam: GENERAL: Alert and oriented x3. NAD, on RA. HEENT: No pallor, no icterus. Pupils equal, round and reactive to light. Oral mucosa moist. NECK: No JVD, no neck masses. HEART: S1 and S2 heard. Regular rate and rhythm. No murmur, no gallop. RESPIRATORY SYSTEM: Normal AP diameter. No accessory muscle use. No wheezing, no crackles. ABDOMEN: Soft, bowel sounds present, nontender, no distention. CENTRAL NERVOUS SYSTEM: Alert and oriented x3. No facial droop. Speech is clear. Obeys simple commands. Moves extremities. EXTREMITIES: RLE 1+ edema with great toe necrotic ulcer. LLE with orthopedic boot. Results & Data Results & Data ([facility]) Vital Signs (Past 12 Hours) Vital Signs Temp Pulse Pulse Pulse Resp BP Pulse Ox 08/26/21 16:00 68 08/26/21 15:22 36.7 C 65 18 118/63 99 08/26/21 11:58 36.4 C L 82 18 160/73 H 96 08/26/21 10:41 143/68 H 08/26/21 10:10 36.5 C 82 16 151/69 H 96 08/26/21 09:50 36.2 C L 82 19 141/65 H 95 08/26/21 09:40 83 19 131/67 97 08/26/21 09:30 86 18 137/64 97 08/26/21 09:24 36.6 C 89 20 134/62 98 (1) Diabetic foot ulcers Diabetic foot ulcer location: toe
[2021-08-26] MEDS: TERAZOSIN HCL 1 MG CAP PO SCH (20:50)
[2021-08-26] MEDS: SENNA 8.6 MG TAB PO SCH (20:51)
[2021-08-26] MEDS: DOCUSATE SODIUM 100 MG CAP PO SCH (20:52)
[2021-08-26] MEDS: ATORVASTATIN 40 MG TAB PO SCH (20:52)
[2021-08-26] MEDS: EZETIMIBE 10 MG TABLET PO SCH (20:52)
[2021-08-27] MEDS: INSULIN ASPART 100 UNITS/ML 3 ML PEN SC SCH ×6 (00:37→20:54)
[2021-08-27 02:52] LABS: Basophils # (auto) 0.02 K/uL (0-0.2); Basophils % (auto) 0.2 %; Eosinophils # (auto) 0.11 K/uL (0-0.5); Eosinophils % (auto) 1.3 %; Hemoglobin 10.4 g/dL (14.0-18.0); Immature Granulocytes # (auto) 0.03 K/uL (0.00-0.02); Immature Granulocytes % (auto) 0.4 %; Lymphocytes # (auto) 0.93 K/uL (1.2-3.4); Lymphocytes % (auto) 10.9 %; Mean Corpuscular Hemoglobin 32.8 pg (25-34); Mean Corpuscular Hgb Conc 33.5 g/dL (32-36); Mean Corpuscular Volume 97.8 fL (80-100); Mean Platelet Volume 10.7 fL (7.4-10.4); Monocytes % (auto) 12.9 %; Neutrophils # (auto) 6.33 K/uL (1.4-6.5); Neutrophils % (auto) 74.3 %; Platelet Count 246 K/uL (130-400); RDW Coefficient of Variation 12.4 % (11.5-14.5); RDW Standard Deviation 44.6 fL (36.4-46.3); Red Blood Count 3.17 M/uL (4.7-6.1); White Blood Count 8.52 K/uL (4.8-10.8)
[2021-08-27 03:09] LABS: BUN Creatinine Ratio 25.4 (10-20); Calcium 8.8 mg/dl (8.5-10.1); Creatinine Clr Calc Pharmacy 58.2 ml/min; Est GFR (African American) 57.8 ml/min; Est GFR (Non-African American) 49.9 ml/min; Magnesium 2.3 mg/dl (1.8-2.4); Phosphorus 3.3 mg/dl (2.5-4.9); Potassium 4.5 mmol/L (3.5-5.1)
[2021-08-27] MEDS ORDERED: VANCOMYCIN HCL 750 MG in SODIUM CHLORIDE 0.9% 250 ML IV SCH (05:00)
[2021-08-27] MEDS: HEPARIN SOD 5,000 UNIT/0.5 ML VIAL SQ SCH ×3 (05:34→20:58)
[2021-08-27] MEDS ORDERED: INSULIN HUMAN NPH SC SCH ×4 (07:30→17:00)
[2021-08-27] MEDS: lisinopril 40 MG TAB PO SCH (08:08)
[2021-08-27] MEDS: POTASSIUM CHLORIDE CRTAB 20 MEQ TABCR PO SCH (08:08)
[2021-08-27] MEDS: METOPROLOL TARTRATE 50 MG TAB PO SCH ×2 (08:08→20:57)
[2021-08-27] MEDS: ASPIRIN 325 MG ECTAB PO SCH (08:08)
[2021-08-27] MEDS: ISOSORBIDE MONO EXTENDED REL 30 MG TABCR PO SCH (08:09)
[2021-08-27] MEDS: metroNIDAZOLE 500 MG TAB PO SCH ×2 (08:09→13:02)
[2021-08-27] MEDS: MULTIVITAMIN TAB PO SCH (08:09)
[2021-08-27] MEDS: FUROSEMIDE 20 MG TAB PO SCH (08:09)
[2021-08-27] MEDS: DOCUSATE SODIUM 100 MG CAP PO SCH ×2 (08:10→20:57)
[2021-08-27] MEDS: CEFEPIME 2,000 MG in SYRINGE 0 ML IV SCH (09:00)
--- NOTE | 2021-08-27 11:52 | Orthopedic Progress Note ---
Date of Service August 27, 2021 Assessment & Plan (1) Cellulitis of left foot: Plan: Incision and Drainage, Left Great Toe, Left 2nd Toe Infection, Distal Phalangeal First Great Toe, 2nd Toe Will continue to monitor cultures Dressing change tomorrow Admission and Anticipated Discharge Date Admission Date: August 23, 2021 Subjective patient resting comfortable in bed. no concerns today. Physical Exam Physical Exam: dressing intact, post op shoe in place. NVI Results & Data ([facility]) Vital Signs (Past 12 Hours) Vital Signs Temp Pulse Pulse Pulse Resp BP Pulse Ox 08/27/21 08:05 36.9 C 70 18 168/68 H 95 08/27/21 07:00 64 08/27/21 03:54 36.9 C 80 16 153/67 H 94 08/27/21 03:34 88
[2021-08-27] MEDS ORDERED: INSULIN HUMAN REGULAR PER UNIT 10 UNITS in SYRINGE 9.9 ML IV ONE (12:00)
[2021-08-27] MEDS: FUROSEMIDE 40 MG TAB PO SCH (13:02)
[2021-08-27] MEDS ORDERED: PIPERACILL/TAZOBAC CONSULT ACTIVE PRN (14:19)
[2021-08-27] MEDS ORDERED: PIPERACILLIN/TAZOBACTAM 3.375 GM in DEXTROSE 5% 100 ML IV ONE (15:00)
--- NOTE | 2021-08-27 16:40 | Hospitalist Progress Note ---
Date of Service August 27, 2021 Assessment & Plan (1) Cellulitis of left foot: (2) Diabetic foot ulcers: (3) Diabetes mellitus type 1: (4) Diabetic polyneuropathy: (5) CKD (chronic kidney disease) stage 3, GFR 30-59 ml/min: (6) CAD (coronary artery disease): (7) Hypertension: (8) Hyperlipidemia: Plan: 66-year-old male w/ PMH of type 1 diabetes mellitus, diabetic neuropathy, diabetic nephropathy with CKD stage III, anemia of chronic disease, chronic ischemic heart disease, s/p CABG, HTN, HLD, gout, bladder cancer presented to the ED 08/23 at the referral of podiatry due to concern for left lower extremity cellulitis. He is being managed for the following: Left foot cellulitis Diabetic foot ulcer Diabetic polyneuropathy/DM type I In affected/necrotic ulceration of left toes and great toe Admitted to med telemetry WBC elevated at 12.8 1K at presentation; ESR 80; CRP 12.3 Admitting imagings: CXRconcern for pulmonary edema versus infectious process. Foot x-ray: No radiographic evidence of osteomyelitis. Diffuse soft tissue edema suggestive of cellulitis. Soft tissue gas along the plantar surface of the first toe. LLE US venous Doppler: No evidence of DVT. Left foot MRI: Suggestive of early osteomyelitis involving the distal phalanx of the great toe and the proximal, middle phalanges of the second toe with diffuse cellulitis and suspicion of soft tissue ulceration. Duplex scan lower extremity arterial: Minimal to moderate atherosclerotic plaque seen throughout the LLE. Findings suggestive of focal stenosis and early. Continue with daptomycin 08/23 and Zosyn 08/23 ---> 08/24 vancomycin, 08/24 metronidazole, 08/24 cefepime ---> changed to Zosyn 08/27 based on admitting wound culture sensitivity A1c of 9.1%, nurse educator consulted. Glycemic pharmacy on board --> will DC with their recommendation. Admitting wound culture positive for group B beta strep, staph aureus, Alcaligenes faecalis (intermediate sensitivity cefepime]. Follow-up with 08/26 left great toe wound culture. ID evaluated the patient 08/24: Switch Dapto to Vanco (trough 15-20), closely monitor renal function, switch Zosyn to cefepime IV and p.o. metronidazole. Obtain wound culture from OR. Final recommendation to follow after the OR findings/procedure and overall culture result. Will reach out to ID once 08/26 left great toe wound culture and sensitivities are out. Orthopedics on board: 08/26 status post left great toe amputation [distal phalanx], I & D of great toe abscess, second toe amputation [distal and middle phalanges], debridement and tenosynovectomy of the flexor hallucis longus septic tendon. c/w ATB, f/u final Cx result. Mild hyponatremia Admitting sodium 133, patient baseline sodium around low normal from outside chart review Likely secondary to poor intake versus other pathology. Get TSH, urine and serum osmolality We will continue to monitor #. Mild creatinine elevation Admitting creatinine 1.2-1.3 Creatinine elevated to 1.44 We will continue to monitor, encourage fluid intake. Transaminitis LFT elevated at presentation, will get hepatic panel Admitting RUQ US:Nonvisualization of pancreas due to overlying bowel gas. Mild hepatomegaly with evidence for fatty infiltration of the liver. denies abd complaints, significant ETOH/tylenol use LFTs downtrending, continue to monitor IDDM Type 1 NPH/novolog per protocol A1c elevated greater than 9, glycemic pharmacy on board, nurse educator consulted CKD 3, diabetic nephropathy monitor renal fxn avoid nephrotoxic agents CAD hx of CABG Diastolic dysfunction grade 2 continue asa, lisinopril, imdur, metoprolol, statin, Lasix Monitor electrolytes and replete as appropriate. daily weights/strict I&O, proBNP elevated at around 1300 cardiac cath 08/09 w/o evidence of occlusion, patent grafts HTN bp stable continue metoprolol, imdur, lisinopril Hypoalbuminemia consult documentation improvement specialist to also aide in wound healing DVT ppx: SQ Heparin Dispo: med tele PCP: Teri FULL CODE Disposition: Uncertain at this time, will consult PT/OT once I&D is done, patient might need PICC line placement depending on ID recommendation after I&D. Admission and Anticipated Discharge Date Admission Date: August 23, 2021 Subjective Patient was sitting up in chair, on room air, eating his lunch, no new acute events overnight. Patient reports feeling tired and fatigued today. Denies any fever/headache/chills/chest pain/shortness of breath/other review of symptoms. Patient reports eating and moving bowels okay. Physical Exam Physical Exam: GENERAL: Alert and oriented x3. NAD, on RA. HEENT: No pallor, no icterus. Pupils equal, round and reactive to light. Oral mucosa moist. NECK: No JVD, no neck masses. HEART: S1 and S2 heard. Regular rate and rhythm. No murmur, no gallop. RESPIRATORY SYSTEM: Normal AP diameter. No accessory muscle use. No wheezing, no crackles. ABDOMEN: Soft, bowel sounds present, nontender, no distention. CENTRAL NERVOUS SYSTEM: Alert and oriented x3. No facial droop. Speech is clear. Obeys simple commands. Moves extremities. EXTREMITIES: RLE 1+ edema with right great toe ulcer. LLE with orthopedic boot. Results & Data Results & Data ([facility]) Vital Signs (Past 12 Hours) Vital Signs Temp Pulse Pulse Resp BP BP Pulse Ox 08/27/21 15:00 36.9 C 74 76 20 169/74 H 95 08/27/21 12:50 79 158/69 H 08/27/21 11:00 36.7 C 68 18 173/70 H 95 08/27/21 08:05 36.9 C 70 18 168/68 H 95 08/27/21 07:00 64 (1) Diabetic foot ulcers Diabetic foot ulcer location: toe
[2021-08-27] MEDS: PIPERACILLIN/TAZOBACTAM 3.375 GM in DEXTROSE 5% 100 ML IV SCH (20:55)
[2021-08-27] MEDS: ATORVASTATIN 40 MG TAB PO SCH (20:56)
[2021-08-27] MEDS: EZETIMIBE 10 MG TABLET PO SCH (20:57)
[2021-08-27] MEDS: SENNA 8.6 MG TAB PO SCH (20:58)
[2021-08-27] MEDS: TERAZOSIN HCL 1 MG CAP PO SCH (20:58)
[2021-08-27] MEDS ORDERED: INSULIN HUMAN REGULAR PER UNIT 9 UNITS in SYRINGE 8.91 ML IV ONE (21:00)
[2021-08-28] MEDS: INSULIN ASPART 100 UNITS/ML 3 ML PEN SC SCH ×6 (00:06→21:07)
[2021-08-28] MEDS: PIPERACILLIN/TAZOBACTAM 3.375 GM in DEXTROSE 5% 100 ML IV SCH ×3 (04:35→21:04)
[2021-08-28] MEDS: HEPARIN SOD 5,000 UNIT/0.5 ML VIAL SQ SCH ×3 (06:10→21:09)
[2021-08-28] MEDS ORDERED: INSULIN HUMAN NPH SC SCH ×3 (07:30→16:30)
[2021-08-28 08:58] LABS: Albumin Level 2.3 gm/dl (3.4-5.0); BUN Creatinine Ratio 19.6 (10-20); Calcium 9.5 mg/dl (8.5-10.1); Creatinine Clr Calc Pharmacy 58.2 ml/min; Est GFR (African American) 57.8 ml/min; Est GFR (Non-African American) 49.9 ml/min; Potassium 4.2 mmol/L (3.5-5.1)
[2021-08-28 09:09] LABS: Albumin Globulin Ratio 0.4 (0.9-2); Bilirubin,Total 1.8 mg/dl (0.2-1); Globulin 5.7 gm/dl (2.5-4.0); Thyroid Stimulating Hormone 0.554 uIu/ml (0.300-4.500)
[2021-08-28] MEDS: DOCUSATE SODIUM 100 MG CAP PO SCH ×2 (09:57→21:06)
[2021-08-28] MEDS: MULTIVITAMIN TAB PO SCH (09:57)
[2021-08-28] MEDS: ASPIRIN 325 MG ECTAB PO SCH (09:58)
[2021-08-28] MEDS: lisinopril 40 MG TAB PO SCH (09:59)
[2021-08-28] MEDS: ISOSORBIDE MONO EXTENDED REL 30 MG TABCR PO SCH (09:59)
[2021-08-28] MEDS: POTASSIUM CHLORIDE CRTAB 20 MEQ TABCR PO SCH (09:59)
[2021-08-28] MEDS: FUROSEMIDE 20 MG TAB PO SCH (10:00)
[2021-08-28] MEDS: METOPROLOL TARTRATE 50 MG TAB PO SCH ×2 (10:00→21:08)
[2021-08-28] MEDS: ACETAMINOPHEN 325 MG TAB PO PRN (10:43)
[2021-08-28] MEDS ORDERED: INSULIN HUMAN NPH SC STA (11:34)
--- NOTE | 2021-08-28 11:49 | Pharmacy Report ---
Pharmacy Glycemic Short Note 2 - Date of Service August 28, 2021 - Glycemic Short BSG Results (Last 24 hours): 08/27/21 08/27/21 08/27/21 11:39 11:40 16:41 Glucose POC Glucose 320 H* 314 H* 388 H* 08/27/21 08/27/21 08/27/21 16:42 20:26 20:27 Glucose POC Glucose 391 H* 328 H* 342 H* 08/27/21 08/28/21 08/28/21 23:52 03:59 04:00 Glucose POC Glucose 109 H 51 L* 61 L* 08/28/21 08/28/21 08/28/21 04:21 07:32 08:14 Glucose 162 H POC Glucose 101 H 129 H OUTPATIENT ANTIDIABETIC REGIMEN: * NPH 51 units SC AM + 28 units SC PM * Novolog 14 units SC BID * HbA1c = 9.1% (08/24/21) ASSESSMENT: 08/28: * Jonathon received a total of 168 units of insulin yesterday (70 units NPH + 19 units IV + 79 units bolus) * BSGs were uncontrolled: [id number] mg/dL * Overnight check was added which was low at 51 mg/dL. Patient was asymptomatic and required 15 g of carbs to bring sugar up to 101 mg/dL. * BSG this AM was 129 mg/dL but wasn't truly fasting given carbs required to correct hypoglycemia. * Will adjust NPH dosing to more closely reflect home dosing. * Entered NPH dose incorrectly this AM so it was not given. Will give 45 units of NPH with lunch as BSG increased to 321 mg/dL. Evening NPH dose will be lower than usual secondary to patient receiving first dose with lunch. * Novolog parameters adjusted accordingly. 08/25: * BSGs yesterday were [phone] mg/dL. Patient received 63 units of insulin with 35 units of basal and 28 units of bolus. * Basal rate of 62 units was probably too aggressive but basal rate of 35 units not sufficient. Will aim for basal rate of 45 units today. * Loosen CF as patient overcorrects. Continue CR. PLAN FOR INPATIENT GLYCEMIC CONTROL: * Basal insulin * NPH 45 units SC with lunch * NPH 20 units SC with dinner * Bolus insulin * NovoLog per scale ACHS or Q6hrs while NPO * Goal Range: Low 110 mg/dL - High 140 mg/dL * Correction Factor: 20 mg/dL/unit * Nutritional / Prandial insulin per carb ratio of 1 unit per 5 grams CHO consumed PLAN FOR DISCHARGE: * HbA1c was 9.1% during this admission. This is above the goal HbA1c of less than 7% based on this patient's age and comorbidities. * Defer adjustments in insulin regimen to outpatient provider given odd regimen and patient's unwillingness to change regimen.
[2021-08-28] MEDS: FUROSEMIDE 40 MG TAB PO SCH (13:14)
--- NOTE | 2021-08-28 17:03 | Orthopedic Progress Note ---
Date of Service August 28, 2021 Assessment & Plan (1) Cellulitis of left foot: Plan: Postop day 2 status post incision and Drainage, Left Great Toe, Left 2nd Toe Infection, Distal Phalangeal First Great Toe, 2nd Toe Heel weightbearing only on the affected foot. Cast shoe for the foot to protect during ambulation. Daily dressing changes. Cultures from great toe noted but not final and no sensitivities; cultures noted from a wound swab Orthopedics will sign off at this time. Discharge instructions placed in DC section. Please call with any questions. Dressing change tomorrow Admission and Anticipated Discharge Date Admission Date: August 23, 2021 Subjective Postop day 2 Patient is sitting up in the chair at the bedside. His is present. Patient is able to get to his bed on his own power for dressing change. No complaints today. Physical Exam Physical Exam: Dressings are removed. Incisions are well approximated. He has some mild erythema over the dorsum of the great toe. No purulent drainage. He has some slight maceration of the one edge of his great toe wound on the plantar surface secondary from drainage. New dressing applied. Results & Data ([facility]) Vital Signs (Past 12 Hours) Vital Signs Temp Pulse Pulse Resp BP Pulse Ox 08/28/21 16:25 36.6 C 68 18 166/76 H 95 08/28/21 11:40 36.7 C 59 L 19 155/70 H 96 08/28/21 07:39 36.7 C 74 19 179/79 H 95 08/28/21 07:34 70 Diagnostic Findings Name: JEN AGUILLON Acct: [id number] Status: ADM IN : 1955 [facility] [place] Date: 08/23/21 Age: 66 Sex: M Dis Date: Loc: [address] Rm/Bed: N[facility] Spec: [id number] Collected: 08/26/21-UNK Received: 08/26/[address] [facility] [address]: Néstor Beard,D.O. Copy To: Mal Neville MD Source: Toe,Left Great OV Order: Ordered: Aer/Dee Cult/Sm Comments: Comment Abscess Left Great Toe Procedure Result Verified Site Gram Stain Final 08/26/21-1215 Gram Stain Result Many Gram Positive Cocci Few WBCs Seen Few Gram Positive Bacilli Aero/Dee Cult Preliminary 08/28/21-1125 Organism 1 Group B Beta Strep Quantity Few Sens Sensitivities to Follow +MixWound Plus Low Counts of Probable Skin Kathleen Organism 2 Staphylococcus species Quantity Rare Sens Sensitivities to Follow
--- NOTE | 2021-08-28 18:06 | Hospitalist Progress Note ---
Date of Service August 28, 2021 Assessment & Plan (1) Cellulitis of left foot: (2) Diabetic foot ulcers: (3) Diabetes mellitus type 1: (4) Diabetic polyneuropathy: (5) CKD (chronic kidney disease) stage 3, GFR 30-59 ml/min: (6) CAD (coronary artery disease): (7) Hypertension: (8) Hyperlipidemia: Plan: 66-year-old male w/ PMH of type 1 diabetes mellitus, diabetic neuropathy, diabetic nephropathy with CKD stage III, anemia of chronic disease, chronic ischemic heart disease, s/p CABG, HTN, HLD, gout, bladder cancer presented to the ED 08/23 at the referral of podiatry due to concern for left lower extremity cellulitis. He is being managed for the following: Left foot cellulitis Diabetic foot ulcer Diabetic polyneuropathy/DM type I In affected/necrotic ulceration of left toes and great toe Admitted to med telemetry WBC elevated at 12.8 1K at presentation; ESR 80; CRP 12.3 Admitting imagings: CXRconcern for pulmonary edema versus infectious process. Foot x-ray: No radiographic evidence of osteomyelitis. Diffuse soft tissue edema suggestive of cellulitis. Soft tissue gas along the plantar surface of the first toe. LLE US venous Doppler: No evidence of DVT. Left foot MRI: Suggestive of early osteomyelitis involving the distal phalanx of the great toe and the proximal, middle phalanges of the second toe with diffuse cellulitis and suspicion of soft tissue ulceration. Duplex scan lower extremity arterial: Minimal to moderate atherosclerotic plaque seen throughout the LLE. Findings suggestive of focal stenosis and early. Continue with daptomycin 08/23 and Zosyn 08/23 ---> 08/24 vancomycin, 08/24 metronidazole, 08/24 cefepime ---> changed to Zosyn 08/27 based on admitting wound culture sensitivity A1c of 9.1%, assistant health educator consulted. Glycemic pharmacy on board --> will DC with their recommendation. Admitting wound culture positive for group B beta strep, staph aureus, Alcaligenes faecalis (intermediate sensitivity to cefepime]. Follow-up with 08/26 left great toe wound culture. ID evaluated the patient 08/24: Switch Dapto to Vanco (trough 15-20), closely monitor renal function, switch Zosyn to cefepime IV and p.o. metronidazole. Obtain wound culture from OR. Final recommendation to follow after the OR findings/procedure and overall culture result. Will reach out to ID once 08/26 left great toe wound culture and sensitivities are out. Orthopedics on board: 08/26 status post left great toe amputation [distal phalanx], I & D of great toe abscess, second toe amputation [distal and middle phalanges], debridement and tenosynovectomy of the flexor hallucis longus septic tendon. c/w ATB, f/u final Cx result. Mild hyponatremia Admitting sodium 133, patient baseline sodium around low normal from outside chart review Likely secondary to poor intake versus other pathology. TSH WNL, urine osmolality 351, serum osmolality 294. Improving trend. We will continue to monitor #. Mild creatinine elevation Admitting creatinine 1.2-1.3 Creatinine elevated to 1.44, still at 1.44 We will continue to monitor, encourage fluid intake. Transaminitis LFT elevated at presentation, will get hepatic panel Admitting RUQ US:Nonvisualization of pancreas due to overlying bowel gas. Mild hepatomegaly with evidence for fatty infiltration of the liver. denies abd complaints, significant ETOH/tylenol use LFTs slightly up trended from previous downtrending trend, continue to monitor IDDM Type 1 NPH/novolog per protocol A1c elevated greater than 9, glycemic pharmacy on board, assistant health educator consulted CKD 3, diabetic nephropathy monitor renal fxn avoid nephrotoxic agents CAD hx of CABG Diastolic dysfunction grade 2 continue asa, lisinopril, imdur, metoprolol, statin, Lasix Monitor electrolytes and replete as appropriate. daily weights/strict I&O, proBNP elevated at around 1300 cardiac cath 08/09 w/o evidence of occlusion, patent grafts HTN bp stable continue metoprolol, imdur, lisinopril Hypoalbuminemia consult bung dropper to also aide in wound healing DVT ppx: SQ Heparin Dispo: med tele PCP: Teri FULL CODE Disposition: Uncertain at this time, will consult PT/OT once I&D is done, patient might need PICC line placement depending on ID recommendation after I&D. Admission and Anticipated Discharge Date Admission Date: August 23, 2021 Subjective Patient was sitting up in bed, on room air, NAD, feels slightly better than yesterday, still feeling tired with mild headache, no new acute events overnight. Patient is eating and moving bowels okay. Patient denies fever/chills/sore throat/chest pain/palpitation/belly pain/other review of symptoms. Physical Exam Physical Exam: GENERAL: Alert and oriented x3. NAD, on RA. HEENT: No pallor, no icterus. Pupils equal, round and reactive to light. Oral mucosa moist. NECK: No JVD, no neck masses. HEART: S1 and S2 heard. Regular rate and rhythm. No murmur, no gallop. RESPIRATORY SYSTEM: Normal AP diameter. No accessory muscle use. No wheezing, no crackles. ABDOMEN: Soft, bowel sounds present, nontender, no distention. CENTRAL NERVOUS SYSTEM: Alert and oriented x3. No facial droop. Speech is clear. Obeys simple commands. Moves extremities. EXTREMITIES: RLE 1+ edema with right great toe ulcer. LLE with orthopedic boot. Results & Data Results & Data ([facility]) Vital Signs (Past 12 Hours) Vital Signs Temp Pulse Pulse Resp BP Pulse Ox 08/28/21 16:25 36.6 C 68 18 166/76 H 95 08/28/21 11:40 36.7 C 59 L 19 155/70 H 96 08/28/21 07:39 36.7 C 74 19 179/79 H 95 08/28/21 07:34 70 (1) Diabetic foot ulcers Diabetic foot ulcer location: toe
[2021-08-28] MEDS: ATORVASTATIN 40 MG TAB PO SCH (21:06)
[2021-08-28] MEDS: EZETIMIBE 10 MG TABLET PO SCH (21:07)
[2021-08-28] MEDS: SENNA 8.6 MG TAB PO SCH (21:09)
[2021-08-28] MEDS: TERAZOSIN HCL 1 MG CAP PO SCH (21:09)
[2021-08-29] MEDS: oxyCODONE HCL IR 5 MG TAB (IMMEDIATE RELEASE) PO PRN (01:37)
[2021-08-29] MEDS: PIPERACILLIN/TAZOBACTAM 3.375 GM in DEXTROSE 5% 100 ML IV SCH ×3 (05:50→20:15)
[2021-08-29] MEDS: HEPARIN SOD 5,000 UNIT/0.5 ML VIAL SQ SCH ×3 (06:07→21:07)
[2021-08-29 07:30] LABS: Hematocrit (blood only) 35.4 % (42-52); Hemoglobin 12.1 g/dL (14.0-18.0); Mean Corpuscular Hemoglobin 33.2 pg (25-34); Mean Corpuscular Hgb Conc 34.2 g/dL (32-36); Mean Corpuscular Volume 97.3 fL (80-100); Mean Platelet Volume 10.8 fL (7.4-10.4); Platelet Count 332 K/uL (130-400); RDW Coefficient of Variation 12.7 % (11.5-14.5); RDW Standard Deviation 44.9 fL (36.4-46.3); Red Blood Count 3.64 M/uL (4.7-6.1); White Blood Count 6.14 K/uL (4.8-10.8)
[2021-08-29] MEDS ORDERED: INSULIN HUMAN NPH SC SCH ×2 (07:30→16:30)
[2021-08-29 08:05] LABS: Albumin Level 2.3 gm/dl (3.4-5.0); BUN Creatinine Ratio 20.4 (10-20); Calcium 9.8 mg/dl (8.5-10.1); Creatinine Clr Calc Pharmacy 57.2 ml/min; Est GFR (African American) 56.4 ml/min; Est GFR (Non-African American) 48.7 ml/min; Magnesium 2.2 mg/dl (1.8-2.4); Potassium 4.2 mmol/L (3.5-5.1)
[2021-08-29 08:09] LABS: Albumin Globulin Ratio 0.4 (0.9-2); Bilirubin,Total 0.5 mg/dl (0.2-1); Globulin 5.6 gm/dl (2.5-4.0); Total Protein 7.9 gm/dl (6.4-8.2)
[2021-08-29] MEDS: DOCUSATE SODIUM 100 MG CAP PO SCH ×2 (08:50→20:15)
[2021-08-29] MEDS: MULTIVITAMIN TAB PO SCH (08:51)
[2021-08-29] MEDS: POTASSIUM CHLORIDE CRTAB 20 MEQ TABCR PO SCH (08:51)
[2021-08-29] MEDS: lisinopril 40 MG TAB PO SCH (08:51)
[2021-08-29] MEDS: METOPROLOL TARTRATE 50 MG TAB PO SCH ×2 (08:51→20:14)
[2021-08-29] MEDS: ASPIRIN 325 MG ECTAB PO SCH (08:51)
[2021-08-29] MEDS: FUROSEMIDE 20 MG TAB PO SCH (08:51)
[2021-08-29] MEDS: ISOSORBIDE MONO EXTENDED REL 30 MG TABCR PO SCH (08:51)
[2021-08-29] MEDS: INSULIN ASPART 100 UNITS/ML 3 ML PEN SC SCH (08:52)
[2021-08-29] MEDS: INSULIN HUMAN NPH SC SCH (08:52)
[2021-08-29] MEDS ORDERED: SODIUM CHLORIDE 0.9% 1000ML 1,000 ML IV SCH (09:00)
[2021-08-29] MEDS: ADVANCED PROBIOTIC 1250 MG CAPSULE PO SCH (10:24)
[2021-08-29] MEDS: INSULIN ASPART 100 UNITS/ML VIAL SC SCH ×3 (13:35→20:19)
--- NOTE | 2021-08-29 17:30 | Hospitalist Progress Note ---
Date of Service August 29, 2021 Assessment & Plan (1) Cellulitis of left foot: (2) Diabetic foot ulcers: (3) Diabetes mellitus type 1: (4) Diabetic polyneuropathy: (5) CKD (chronic kidney disease) stage 3, GFR 30-59 ml/min: (6) CAD (coronary artery disease): (7) Hypertension: (8) Hyperlipidemia: Plan: 66-year-old male w/ PMH of type 1 diabetes mellitus, diabetic neuropathy, diabetic nephropathy with CKD stage III, anemia of chronic disease, chronic ischemic heart disease, s/p CABG, HTN, HLD, gout, bladder cancer presented to the ED 08/23 at the referral of podiatry due to concern for left lower extremity cellulitis. He is being managed for the following: Left foot cellulitis Diabetic foot ulcer Diabetic polyneuropathy/DM type I In affected/necrotic ulceration of left toes and great toe Admitted to med telemetry WBC elevated at 12.8 1K at presentation; ESR 80; CRP 12.3 Admitting imagings: CXRconcern for pulmonary edema versus infectious process. Foot x-ray: No radiographic evidence of osteomyelitis. Diffuse soft tissue edema suggestive of cellulitis. Soft tissue gas along the plantar surface of the first toe. LLE US venous Doppler: No evidence of DVT. Left foot MRI: Suggestive of early osteomyelitis involving the distal phalanx of the great toe and the proximal, middle phalanges of the second toe with diffuse cellulitis and suspicion of soft tissue ulceration. Duplex scan lower extremity arterial: Minimal to moderate atherosclerotic plaque seen throughout the LLE. Findings suggestive of focal stenosis and early. Orthopedics on board: 08/26 status post left great toe amputation [distal phalanx], I & D of great toe abscess, second toe amputation [distal and middle phalanges], debridement and tenosynovectomy of the flexor hallucis longus septic tendon. Continue with daptomycin 08/23 and Zosyn 08/23 ---> 08/24 vancomycin, 08/24 metronidazole, 08/24 cefepime ---> changed to Zosyn 08/27 based on admitting wound culture sensitivity A1c of 9.1%, clinical document improvement educator consulted. Glycemic pharmacy on board --> will DC with their recommendation. Admitting wound culture positive for group B beta strep, staph aureus, Alcaligenes faecalis (intermediate sensitivity to cefepime]. 08/26 left great toe wound culture: Group B strep and staph aureus ID evaluated the patient 08/24: Switch Dapto to Vanco (trough 15-20), closely monitor renal function, switched Zosyn to cefepime IV and p.o. metronidazole. Rediscussion with ID 08/29 after wound Cx from Operative available: 7-14 Day of ATB therapy from 08/26 (confirmed with ortho [Samuel] no residual OM suspected after Surgical procedure), can switch to cipro PO (for Alcaligenes) and Augmentin PO for (GBS and MSSA), c/w Zosyn while inpatient. will c/w 14 day of ATB therapy for him. Mild hyponatremia Admitting sodium 133, patient baseline sodium around low normal from outside chart review Likely secondary to poor intake versus other pathology. TSH WNL, urine osmolality 351, serum osmolality 294. Na stable around the same level We will continue to monitor #. Mild creatinine elevation Admitting creatinine 1.2-1.3 Creatinine elevated to 1.44, still at 1.47 will hold lasix and lisinopril; 1 L gentle hydration We will continue to monitor, encourage fluid intake. Transaminitis LFT elevated at presentation, will get hepatic panel Admitting RUQ US:Nonvisualization of pancreas due to overlying bowel gas. Mild hepatomegaly with evidence for fatty infiltration of the liver. denies abd complaints, significant ETOH/tylenol use LFTs slightly up trended from previous downtrending trend, continue to monitor IDDM Type 1 NPH/novolog per protocol A1c elevated greater than 9, glycemic pharmacy on board, clinical document improvement educator consulted CKD 3, diabetic nephropathy monitor renal fxn avoid nephrotoxic agents CAD hx of CABG Diastolic dysfunction grade 2 continue asa, lisinopril, imdur, metoprolol, statin, Lasix Monitor electrolytes and replete as appropriate. daily weights/strict I&O, proBNP elevated at around 1300 cardiac cath 08/09 w/o evidence of occlusion, patent grafts HTN bp stable continue metoprolol, imdur, lisinopril Hypoalbuminemia consult optical goods drill operator to also aide in wound healing DVT ppx: SQ Heparin Dispo: med tele PCP: Teri FULL CODE Disposition: Can be DC'd from medical standpoint in a day or so, will re-eval jaime. PT/OT DC to home. Admission and Anticipated Discharge Date Admission Date: August 23, 2021 Subjective Patient was sitting up in chair, on room air, NAD, feeling better today,, no new acute events overnight. Patient is eating and moving bowels okay. Patient reports pain in the left foot under control. Patient denies fever/chills/sore throat/chest pain/palpitation/belly pain/other review of symptoms. Physical Exam Physical Exam: GENERAL: Alert and oriented x3. NAD, on RA. HEENT: No pallor, no icterus. Pupils equal, round and reactive to light. Oral mucosa moist. NECK: No JVD, no neck masses. HEART: S1 and S2 heard. Regular rate and rhythm. No murmur, no gallop. RESPIRATORY SYSTEM: Normal AP diameter. No accessory muscle use. No wheezing, no crackles. ABDOMEN: Soft, bowel sounds present, nontender, no distention. CENTRAL NERVOUS SYSTEM: Alert and oriented x3. No facial droop. Speech is clear. Obeys simple commands. Moves extremities. EXTREMITIES: RLE 1+ edema with right great toe ulcer. LLE with orthopedic boot. Results & Data Results & Data ([facility]) Vital Signs (Past 12 Hours) Vital Signs Temp Pulse Pulse Resp BP Pulse Ox 08/29/21 16:00 76 08/29/21 15:31 36.6 C 73 14 144/72 H 97 08/29/21 11:43 36.8 C 68 14 93/57 L 96 08/29/21 08:18 36.6 C 74 18 164/76 H 95 08/29/21 08:00 65 (1) Diabetic foot ulcers Diabetic foot ulcer location: toe
[2021-08-29] MEDS: EZETIMIBE 10 MG TABLET PO SCH (20:14)
[2021-08-29] MEDS: ATORVASTATIN 40 MG TAB PO SCH (20:14)
[2021-08-29] MEDS: TERAZOSIN HCL 1 MG CAP PO SCH (20:14)
[2021-08-29] MEDS: SENNA 8.6 MG TAB PO SCH (20:15)
[2021-08-30] MEDS: oxyCODONE HCL IR 5 MG TAB (IMMEDIATE RELEASE) PO PRN (03:22)
[2021-08-30] MEDS: PIPERACILLIN/TAZOBACTAM 3.375 GM in DEXTROSE 5% 100 ML IV SCH ×2 (05:27→12:59)
[2021-08-30] MEDS: HEPARIN SOD 5,000 UNIT/0.5 ML VIAL SQ SCH ×2 (05:28→14:55)
[2021-08-30 06:32] LABS: Albumin Globulin Ratio 0.4 (0.9-2); Albumin Level 2.2 gm/dl (3.4-5.0); BUN Creatinine Ratio 23.1 (10-20); Bilirubin,Total 0.3 mg/dl (0.2-1); Calcium 9.6 mg/dl (8.5-10.1); Creatinine Clr Calc Pharmacy 59.7 ml/min; Est GFR (African American) 59.8 ml/min; Est GFR (Non-African American) 51.6 ml/min; Globulin 5.2 gm/dl (2.5-4.0); Potassium 4.1 mmol/L (3.5-5.1); Total Protein 7.4 gm/dl (6.4-8.2)
[2021-08-30] MEDS: ADVANCED PROBIOTIC 1250 MG CAPSULE PO SCH (08:08)
[2021-08-30] MEDS: DOCUSATE SODIUM 100 MG CAP PO SCH (08:08)
[2021-08-30] MEDS: ASPIRIN 325 MG ECTAB PO SCH (08:08)
[2021-08-30] MEDS: ISOSORBIDE MONO EXTENDED REL 30 MG TABCR PO SCH (08:08)
[2021-08-30] MEDS: POTASSIUM CHLORIDE CRTAB 20 MEQ TABCR PO SCH (08:09)
[2021-08-30] MEDS: MULTIVITAMIN TAB PO SCH (08:09)
[2021-08-30] MEDS: METOPROLOL TARTRATE 50 MG TAB PO SCH (08:09)
[2021-08-30] MEDS: INSULIN ASPART 100 UNITS/ML VIAL SC SCH ×3 (08:13→17:07)
[2021-08-30] MEDS: INSULIN HUMAN NPH SC SCH (08:16)
[2021-08-30] MEDS ORDERED: INSULIN HUMAN NPH SC SCH ×2 (08:40→16:30)
[2021-08-30] MEDS: FUROSEMIDE 20 MG TAB PO SCH (09:24)
[2021-08-30] MEDS: lisinopril 40 MG TAB PO SCH (09:24)
--- NOTE | 2021-08-30 12:36 | Pharmacy Report ---
Pharmacy Glycemic Short Note 2 - Date of Service August 30, 2021 - Glycemic Short BSG Results (Last 24 hours): 08/29/21 08/29/21 08/30/21 16:29 20:06 05:28 Glucose 58 L POC Glucose 255 H 197 H 08/30/21 08/30/21 07:39 11:32 Glucose POC Glucose 100 H 202 H OUTPATIENT ANTIDIABETIC REGIMEN: * NPH 51 units SC AM + 28 units SC PM * Novolog 14 units SC BID * HbA1c = 9.1% (08/24/21) ASSESSMENT: 08/30: * Patient received a total of 119 units of insulin yesterday (75 units NPH + 44 units Novolog) * BSGs were uncontrolled: [phone] mg/dL * Fasting BSG was actually below goal at 100 mg/dL this AM * Will reduce NPH dose with dinner this evening to prevent fasting hypoglycemia * Significant trend upwards in postprandial BSGs throughout the day * Will tighten Novolog even further today and increase AM NPH dose * Will be cautious with dosing given patient is already well above his total daily dose from home and has T1DM 08/28: * Jonathon received a total of 168 units of insulin yesterday (70 units NPH + 19 units IV + 79 units bolus) * BSGs were uncontrolled: [phone] mg/dL * Overnight check was added which was low at 51 mg/dL. Patient was asymptomatic and required 15 g of carbs to bring sugar up to 101 mg/dL. * BSG this AM was 129 mg/dL but wasn't truly fasting given carbs required to correct hypoglycemia. * Will adjust NPH dosing to more closely reflect home dosing. * Entered NPH dose incorrectly this AM so it was not given. Will give 45 units of NPH with lunch as BSG increased to 321 mg/dL. Evening NPH dose will be lower than usual secondary to patient receiving first dose with lunch. * Novolog parameters adjusted accordingly. PLAN FOR INPATIENT GLYCEMIC CONTROL: * Basal insulin - increased AM, decreased PM * NPH 60 units SC with lunch * NPH 20 units SC with dinner * Bolus insulin - tightened * NovoLog per scale ACHS or Q6hrs while NPO * Goal Range: Low 110 mg/dL - High 140 mg/dL * Correction Factor: 10 mg/dL/unit * Nutritional / Prandial insulin per carb ratio of 1 unit per 3 grams CHO consumed PLAN FOR DISCHARGE: * HbA1c was 9.1% during this admission. This is above the goal HbA1c of less than 7% based on this patient's age and comorbidities. * Would recommend increasing insulin doses given HbA1c. * Increase NPH to 60 units SC with AM meal + 20 units SC with PM meal * Increase Novolog to 15 units SC AC * Patient should consider transition to Lantus/Novolog regimen as an outpatient but will defer management of this to PCP/MTM clinic
[2021-08-30] MEDS: FUROSEMIDE 40 MG TAB PO SCH (14:54)
--- NOTE | 2021-08-30 16:51 | Discharge Summary ---
Date of Service August 30, 2021 Admission HPI Per Admitting Provider This is a 66-year-old male who has significant past medical history of type 1 diabetes mellitus, diabetic neuropathy, diabetic nephropathy with CKD stage III anemia of chronic disease, chronic ischemic heart disease, history of CABG, HTN, HLD, gout, bladder cancer who presents to ED at the referral of podiatry due to concern for left lower extremity cellulitis. Patient was out hunting on Saturday and Saturday. When he returned home from camp on Saturday he noticed redness to the top of his left foot. He does have diabetic neuropathy and therefore did not feel any pain. He also has inability to see under his foot. He had an urgent appointment with podiatry today who noted patient to have ulcerations to left great toe, 2 and 3 with dorsal midfoot erythema and warmth. On Saturday he felt chilled, but denies and documented fever. He denies sweats, lightheaded, dizziness, chest pain, sob at rest, cough, hemopytsis, n/v/d, abd pain, change in bowel or urinary habits. He has been dealing with SOB which is n ew for him. He was seen and evaluated by cardiology and underwent nuclear stress test. He was then referred to [place] for cardiac cath given hx of bypass 20 years ago. He Cardiac cath was unremarkable and revealed patent grafts. He does recall have a similar foot infection in past, but w/o ulcerations. He has been diabetic since age 17. His appetite has been good. In ED pt remained hemodynamically stable. Lab work notable for WBC 12.81, H&H 12.4 and 35.5, platelet 248, ESR 80, sodium 133, BUN 32, creatinine 1.27 total bilirubin 1.3, AST 67, ALT 119, alk phos 196, CRP 12.30. Chest x-ray revealed cardiomegaly with interstitial thickening. L Foot XR No acute bony abnormality is identified. Specifically, there is no radiographic evidence of osteomyelitis on the provided images. 2. Diffuse soft tissue edema is typical for cellulitis. 3. Suspect a soft tissue ulceration with soft tissue gas along the plantar surface of the first toe. He was started on IV daptomycin and zosyn in ED. Admission Exam Per Admitting Provider GENERAL: Alert and oriented x3. NAD, on RA. HEENT: No pallor, no icterus. Pupils equal, round and reactive to light. Oral mucosa moist. NECK: No JVD, no neck masses. HEART: S1 and S2 heard. Regular rate and rhythm. No murmur, no gallop. RESPIRATORY SYSTEM: Normal AP diameter. No accessory muscle use. No wheezing, no crackles. ABDOMEN: Soft, bowel sounds present, nontender, no distention. CENTRAL NERVOUS SYSTEM: Alert and oriented x3. No facial droop. Speech is clear. Obeys simple commands. Moves extremities. EXTREMITIES: RLE 1+ edema, LLE 2+ edema with erythema/tenderness of left foot with multiple ulcers under left toes/likely fluctuance under great toe. Principal Diagnosis Left foot osteomyelitis/left foot cellulitis on the background of uncontrolled diabetes mellitus Discharge Exam GENERAL: Alert and oriented x3. NAD, on RA. HEENT: No pallor, no icterus. Pupils equal, round and reactive to light. Oral mucosa moist. NECK: No JVD, no neck masses. HEART: S1 and S2 heard. Regular rate and rhythm. No murmur, no gallop. RESPIRATORY SYSTEM: Normal AP diameter. No accessory muscle use. No wheezing, no crackles. ABDOMEN: Soft, bowel sounds present, nontender, no distention. CENTRAL NERVOUS SYSTEM: Alert and oriented x3. No facial droop. Speech is clear. Obeys simple commands. Moves extremities. EXTREMITIES: RLE 1+ edema with right great toe ulcer. LLE with orthopedic boot. Discharge Data Allergies Allergy/AdvReac Type Severity Reaction Status Date / Time No Known Allergies Allergy Verified 08/23/21 12:32 Consultations 08/23/21 13:59 ED Decision to Admit Stat 08/23/21 14:32 Consult Orthopedic Surgery Routine 08/24/21 07:51 Consult Infectious Diseases Routine Procedures Performed Operation Date: 08/26/21 07:30 Actual Procedures p Incision and Drainage, Left Great Toe, Left 2nd Toe Infection, Distal Phalangeal First Great Toe, 2nd Toe(Left) - Néstor Beard DO Ordered Studies 08/23/21 14:56 US venous doppler LE LT Stat 08/23/21 15:11 MR foot LT w/o con Routine 08/23/21 15:32 US arterial duplex LE LT Stat 08/23/21 16:21 US abdomen limited Routine Diabetes Follow up Diabetes Follow-up Needed for HgbA1c >9% Hospital Course (1) Cellulitis of left foot: (2) Diabetic foot ulcers: (3) Diabetes mellitus type 1: (4) Diabetic polyneuropathy: (5) CKD (chronic kidney disease) stage 3, GFR 30-59 ml/min: (6) CAD (coronary artery disease): (7) Hypertension: (8) Hyperlipidemia: 66-year-old male w/ PMH of type 1 diabetes mellitus, diabetic neuropathy, diabetic nephropathy with CKD stage III, anemia of chronic disease, chronic ischemic heart disease, s/p CABG, HTN, HLD, gout, bladder cancer presented to the ED 08/23 at the referral of podiatry due to concern for left lower extremity cellulitis. He was managed for the following: #. Left foot cellulitis/ Osteomyelitis #. Diabetic foot ulcer #. Diabetic polyneuropathy/DM type I #. necrotic ulceration of left toes and great toe Admitted to med telemetry WBC elevated at 12.8 1K at presentation; ESR 80; CRP 12.3 Admitting imagings: CXRconcern for pulmonary edema versus infectious process. Foot x-ray: No radiographic evidence of osteomyelitis. Diffuse soft tissue edema suggestive of cellulitis. Soft tissue gas along the plantar surface of the first toe. LLE US venous Doppler: No evidence of DVT. Left foot MRI: Suggestive of early osteomyelitis involving the distal phalanx of the great toe and the proximal, middle phalanges of the second toe with diffuse cellulitis and suspicion of soft tissue ulceration. Duplex scan lower extremity arterial: Minimal to moderate atherosclerotic plaque seen throughout the LLE. Findings suggestive of focal stenosis and early. Admitting wound culture positive for group B beta strep, staph aureus, Alcaligenes faecalis (intermediate sensitivity to cefepime]. 08/26 left great toe wound culture: Group B strep and staph aureus Orthopedics evaluated while inpatient: 08/26 status post left great toe amputation [distal phalanx], I & D of great toe abscess, second toe amputation [distal and middle phalanges], debridement and tenosynovectomy of the flexor hallucis longus septic tendon. ID evaluated the patient 08/24: Final recommendation was to complete 14 days of antibiotic therapy from 08/26 with Zosyn while inpatient. Alternative: Augmentin and Cipro. ATB while inpatient: 08/23 daptomycin and 08/23 Zosyn ---> 08/24 vancomycin, 08/24 metronidazole, 08/24 cefepime ---> changed to Zosyn 08/27 based on admitting wound culture sensitivity A1c of 9.1%, environmental educator consulted. Glycemic pharmacy on board while inpatient. Patient was recommended to switch to Lantus, initially agreed to environmental educator apparently, later on decided to go back on his current NPH insulin and expressed interest to switch if needed as an outpatient in coordination with his primary care. Patient advised to follow-up with MTM clinic for close monitoring of his diabetes as it is poorly controlled. Minor dose changes with his current insulin regimen was recommended by glycemic pharmacy, patient given out the instruction. Mild hyponatremia Admitting sodium 133, patient baseline sodium around low normal from outside chart review Likely secondary to poor intake versus other pathology. TSH WNL, urine osmolality 351, serum osmolality 294. Na low normal, stable. #. Mild creatinine elevation Resolved. Transaminitis LFT elevated at presentation, will get hepatic panel Admitting RUQ US:Nonvisualization of pancreas due to overlying bowel gas. Mild hepatomegaly with evidence for fatty infiltration of the liver. denies abd complaints, significant ETOH/tylenol use Patient will need periodic monitoring of his LFTs as an outpatient, advised to coordinate with his primary care physician. IDDM Type 1 NPH/novolog per protocol A1c elevated greater than 9, glycemic pharmacy on board, environmental educator consulted See above for glycemic pharmacist recommendation and patient's choice regarding his diabetic management. CKD 3, diabetic nephropathy monitor renal fxn avoid nephrotoxic agents CAD hx of CABG Diastolic dysfunction grade 2 continue asa, lisinopril, imdur, metoprolol, statin, Lasix HTN bp stable continue metoprolol, imdur, lisinopril Hypoalbuminemia consult railroad brakeman to also aide in wound healing DVT ppx: SQ Heparin Dispo: med tele PCP: Teri FULL CODE Patient be discharged home with following instruction at the time discharge: Follow-up with your primary care physician within a week time. Follow activity recommendation handed out at the time of discharge. Your liver enzymes were elevated while inpatient, you will need a follow-up on your liver enzymes on a regular basis, coordinate with your PCP. You will be discharged on antibiotic to complete total of 14 days of therapy. Follow-up with wound care clinic as an outpatient. F/U with orthopaedics as Outpatient. Your blood sugar level is poorly controlled, encourage to establish care with MTM clinic as an outpatient. As discussed during the stay, you preferred to go with your home regimen and expressed interest in pursuing the change in your diabetic treatment as an outpatient. Glycemic pharmacy while inpatient as suggested following modification to your home regimen until you get evaluated by your primary care/MTM clinic to switch to Lantus. They are: * Increase NPH to 60 units SC with AM meal + 20 units SC with PM meal * Increase Novolog to 15 units SC AC Get your blood work CMP done in a week time upon discharge. You will be discharged on 3 days worth of as needed pain medication, contact with your primary care physician for further prescription on pain medication if needed. Total Time Total Time Spent Total Time Spent (In Minutes): 50 Discharge Plan Discharge Items Patient Disposition: Home - Self-Care Reason For Visit: L FOOT CELLULITIS; DIABETIC ULCERS Discharge Diagnosis: Left foot osteomyelitis Mild hyponatremia Transaminitis Activity: As commented below Activity Comment: Heel weightbearing only on the affected foot. Cast so for the left foot. Non-emergency contact: Primary Care Provider Call non-emergency contact if: you have any medication questions, your symptoms worsen, your pain is not controlled and your rectal temperature is above 100.4 Follow-up/Referrals: Killian Williamson MD [Primary Care Provider] - (Date & Time 09/05/2021 11:20 AM Provider Killian Williamson MD [facility] ) Diet: Carb Consistent or DM2 and Heart Healthy Addtl Attending Provider Instructions: Follow-up with your primary care physician within a week time. Follow activity recommendation handed out at the time of discharge. Your liver enzymes were elevated while inpatient, you will need a follow-up on your liver enzymes on a regular basis, coordinate with your PCP. You will be discharged on antibiotic to complete total of 14 days of therapy. Follow-up with wound care clinic as an outpatient. F/U with orthopaedics as Outpatient. Your blood sugar level is poorly controlled, encourage to establish care with MTM clinic as an outpatient. As discussed during the stay, you preferred to go with your home regimen and expressed interest in pursuing the change in your diabetic treatment as an outpatient. Glycemic pharmacy while inpatient as suggested following modification to your home regimen until you get evaluated by your primary care/MTM clinic to switch to Lantus. They are: * Increase NPH to 60 units SC with AM meal + 20 units SC with PM meal * Increase Novolog to 15 units SC AC Get your blood work CMP done in a week time upon discharge. You will be discharged on 3 days worth of as needed pain medication, contact with your primary care physician for further prescription on pain medication if needed. Addtl Calender Tender Provider Instructions: ACTIVITY RECOMMENDATIONS: Limitations: Heel weight bearing only if able to tolerate. SPECIAL CARE INSTRUCTIONS: * Some drainage onto the dressing is normal and is no cause for alarm. * Some swelling is natural especially after walking. * When resting, keep your foot elevated above the level of your heart. * Call [facility] if you notice: -Increased drainage -Fever over 101 degrees F -Severe constant pain BANDAGE: * Daily dressing changes. You may use Adaptic Vaseline gauze, 4 x 4 gauze, Kerlix wrap. * Keep bandage/cast dry at all times. FOLLOW UP VISIT WITH DR. BEARD If appointment is not already scheduled: Please call [facility] after you get home today to schedule a follow-up appointment for [address] Beard at . Pending Studies at Discharge: No Stand-Alone Forms: My Companion Canine, Smoking Cessation Medications and DC Order Prescriptions: New furosemide 20 mg Tablet 60 mg PO DAILY Qty: 90 RF: 0 furosemide 40 mg Tablet 40 mg PO DAILY@1400 Qty: 30 RF: 0 potassium chloride 20 mEq Tablet,Er Particles/Crystals 20 meq PO QAM Qty: 30 RF: 0 Advanced Probiotic 625 mg (10 billion cell) Capsule 2 cap PO DAILY Qty: 14 RF: 0 ciprofloxacin HCl 500 mg tablet 500 mg PO BID 10 Days Qty: 20 RF: 0 amoxicillin-pot clavulanate [Augmentin] 875-125 mg tablet 1 tab PO BID 10 Days Qty: 20 RF: 0 oxycodone 5 mg tablet 5 mg PO Q8H PRN (Reason: pain) 3 Days Qty: 9 RF: 0 Continued multivitamin Tablet 1 tab PO DAILY RF: 0 atorvastatin 80 mg Tablet 80 mg PO HS RF: 0 aspirin 325 mg Tablet 325 mg PO QAM RF: 0 ezetimibe [Zetia] 10 mg Tablet 10 mg PO HS RF: 0 metoprolol tartrate 25 mg Tablet 25 mg PO BID RF: 0 isosorbide mononitrate 30 mg tablet extended release 24 hr 30 mg PO DAILY RF: 0 terazosin 2 mg capsule 2 mg PO HS RF: 0 lisinopril 40 mg tablet 40 mg PO DAILY RF: 0 Changed Novolin N NPH U-100 Insulin 100 unit/mL Suspension 20 unit SUBCUT QPM Qty: 0 RF: 0 Novolin N NPH U-100 Insulin 100 unit/mL Suspension 60 unit SUBCUT QAM Qty: 0 RF: 0 insulin aspart U-100 [Novolog PenFill U-100 Insulin] 100 unit/mL Cartridge 15 unit SUBCUT BID Qty: 0 RF: 0 Discharge Orders: Discharge Order (Routine); Ordered 08/30/21 Ordered By: Mal Neville Admission Data Admit Date/Time: 08/23/21 14:32 Attending Provider: Mal Neville Admit Provider: Mal Neville Primary Care Provider: Killian Williamson Other Providers: Mal Neville ; Néstor Beard ; Jackson Lara ; Rios Quintana ; Bereket Frost I. ; Regulo Bridges II ; Neelima Bronson ; Killian Vidal ; Sidney Mesa Other Interventions: Discharge Summary Assessment (RN) Last Done: 08/30/21 16:38
== END 2021-08-30 17:32 | disposition home or self-care (01) | DRG 616 ==
LOC: ED 11:05 → 2N 14:32